=== PATIENT | female | born 1940 | race Caucasian/White ===

== ENCOUNTER → 2016-06-25 | Outpatient (CLI) | payer MEDICARE ==
--- NOTE | 2016-06-25 13:46 | WOMENS IMAGING REPORT ---
EXAM DESCRIPTION: 3D SCREENING MAMMO BILAT COMPLETED DATE/TIME: 06/25/2016 8:52 am REASON FOR STUDY: Z12.31, ROYUTINE SCREENING MAMMO (3D) Z12.31 ENCNTR SCREEN MAMMOGRAM FOR MALIGNAN T NEOPLASM OF OLAMIDE COMPARISON: 2008 to 2015 TECHNIQUE: Standard craniocaudal and mediolateral oblique views of each breast recorded using digita l acquisition and breast tomosynthesis. LIMITATIONS: None. FINDINGS: No masses, calcifications or architectural distortion. No areas of suspicion. Read with the assistance of CAD. .[facility] - R2 Cenova Version 1.3 .[facility] - R2 Cenova Version 1.3 .[facility] - R2 Cenova Version 2.4 .[facility] [place]2 Cenova Version 2.4 .[facility] - R2 Director Of Institutional Giving Version 9.2 BREAST DENSITY: b. There are scattered areas of fibroglandular density. BIRAD: 1 NEGATIVE RECOMMENDATION: ROUTINE SCREENING COMMENT: PATIENT NOTIFIED BY LETTER. The [employer] recommends an annual screening mammogram for women aged 40 years or over. Each patient will receive a reminder prior to the anniversary date of her mammogram. The [employer] ([employer]) has developed recommendations for screening MRI of the breast s in certain patient populations, to be used in conjunction with mammography. Breast MRI surveillanc e may be appropriate for women with more than 20% lifetime risk of developing breast cancer as deter mined by genetic testing, significant family history of the disease, or history of mantle radiation f or Hodgkins Disease. ACR Practice Guidelines 2008. DBT Technology DBT is a type of tomographic mammography. With conventional mammography, overlapping breast tissue ma y make lesions difficult to detect, even with good compression. DBT uses an x-ray tube that rotates a round the breast, taking images at different angles. These images are then combined to create thin sl ices of the breast that the radiologist can view as a 3D reconstruction. The ZOCKO unit can perform full-field digital mammograms (2D imaging); or DBT (3D imaging); or both, in a combination mode that quickly performs both the mammogram and the tomosynthesis scan while the breast is still compressed. PQRS 6045F: Fluoroscopic imaging is not utilized for breast tomosynthesis. TECHNICAL DOCUMENTATION: FINDING NUMBER: (1) ASSESSMENT: (1) JOB ID: [id number] [employer]- All Rights Reserved
== END ==
LOC: WI 08:18
PROVIDERS: ATTEND Family Medicine
DX: Z12.31 Encounter for screening mammogram for malignant neoplasm of breast (principal)
CPT/HCPCS: 77063; G0202; 77067

== ENCOUNTER 2016-08-23 21:30 | Inpatient (IN) | payer MEDICARE ==
[2016-08-23] MEDS ORDERED: FAMOTIDINE INJ/PF 20 MG/2 ML SDV IV ONE (22:10)
[2016-08-23] MEDS ORDERED: ONDANSETRON HCL INJ/PF 4 MG/2 ML SDV IV ONE (22:10)
--- NOTE | 2016-08-23 22:14 | ER Document Report ---
ED General - General Stated Complaint: CHEST PAIN Notes: Patient is 75-year-old female presents with complaint of pain in her epigastric and lower chest area. She says it started suddenly when she was sitting down and not doing anything exertional. No association shortness of breath. She did have some nausea. Emesis arrived they did give her aspirin and nitroglycerin. After the nitroglycerin she apparently dropped her pressure and syncopal episode and did vomit. No blood in her emesis. She says that her pain is actually improved now. She does have history of reflux but says this feels nothing like previous acid reflux pain. No history of heart disease. No weakness or numbness and her extremities. No headache. She had a chronic stress test in 2009. No cardiac workup since then. TRAVEL OUTSIDE OF THE [place] IN LAST 30 DAYS: No - Related Data Home Medications: Current Home Medications Acetaminophen [Tylenol] 1 tab PO PRN PRN 08/24/16 [History] Amitriptyline HCl [Elavil 10 Mg Tablet] 20 mg PO DAILY 08/24/16 [History] Chlorthalidone [Chlorthalidone 25 mg Tablet] 1 tab PO DAILY 08/24/16 [History] Citalopram Hydrobromide [Citalopram HBr] 20 mg PO DAILY 08/24/16 [History] Diphenhydramine HCl [Benadryl] 25 mg PO DAILY 08/24/16 [History] Enalapril Maleate 20 mg PO DAILY 08/24/16 [History] Iron 65 mg PO BID 08/24/16 [History] Levothyroxine Sodium 100 mcg PO DAILY 08/24/16 [History] Omeprazole 20 mg PO DAILY 08/24/16 [History] Red Yeast Rice 1,200 mg PO DAILY 08/24/16 [History] Ubidecarenone [Co Q-10] 100 mg PO DAILY 08/24/16 [History] Past Medical History - Social History Smoking Status: Never Smoker Frequency of alcohol use: None Drug Abuse: None Family History: Reviewed & Not Pertinent Review of Systems - Review of Systems Notes: My Normal Review Basic REVIEW OF SYSTEMS: CONSTITUTIONAL : Denies fever, chills, or sweats. Denies recent illness. EENT: Denies eye, ear, throat, or mouth pain or symptoms. Denies nasal or sinus congestion. CARDIOVASCULAR: Lower chest pain RESPIRATORY: Denies cough, cold, or chest congestion. Denies shortness of breath, difficulty breathing, or wheezing. GASTROINTESTINAL: Epigastric abdominal pain. Vomiting 1 Denies constipation. Last BM: GENITOURINARY: Denies difficulty urinating, painful urination, burning, frequency, or blood in urine.P: MUSCULOSKELETAL: Denies neck or back pain or joint pain or swelling. SKIN: Denies rash or skin lesions. NEUROLOGICAL: Denies altered mental status or loss of consciousness. Denies headache. Denies weakness or paralysis or loss of use of either side. Denies problems with gait or speech. Denies sensory or motor loss. ALL OTHER SYSTEMS REVIEWED AND NEGATIVE. Physical Exam - Vital signs Vitals: Temp 98.1 F 08/23/16 22:00 - Notes Notes: General Appearance: Well nourished, alert, cooperative, no acute distress, no obvious discomfort. Vitals: reviewed, See vital signs table. Head: no swelling or tenderness to the head Eyes: PERRL, EOMI, Conjuctiva clear Mouth: No decreasd moisture Lungs: No wheezing, No rales, No rhonci, No accessory muscle use, good air exchange bilaterally. Heart: Normal rate, Regular rythm, No murmur, no rub Abdomen: Normal BS, soft, No rigidity, no reproducible abdominal tenderness to palpation, No guarding, no rebound, no abdominal masses, no organomegaly Extremities: strength 5/5 in all extremities, good pulses in all extremities, no swelling or tenderness in the extremities, no edema. Skin: warm, dry, appropriate color, no rash Neuro: speech clear, oriented x 3, normal affect, responds appropriately to questions. Course - Vital Signs Vital signs: Temp Pulse Resp BP Pulse Ox 98.1 F 12 107/65 100 08/23/16 22:00 08/24/16 05:01 08/24/16 05:00 08/24/16 05:01 - Laboratory Result Diagrams: 08/23/16 22:25 08/23/16 22:25 Laboratory results interpreted by me: 08/23/16 08/23/16 22:25 22:25 WBC 12.8 H Hgb 10.5 L Hct 33.4 L MCV 75 L MCH 23.5 L MCHC 31.5 L RDW 24.0 H Seg Neutrophils % 79.2 H Lymphocytes % 10.2 L Absolute Neutrophils 10.2 H BUN 21 H Creatinine 1.34 H Est GFR ( Amer) 47 L Est GFR (Non-Af Amer) 39 L Glucose 112 H Direct Bilirubin 0.5 H AST 84 H Lipase 13636.7 H - EKG Interpretation by Me Additional EKG results interpreted by me: 08/23/16 22:10 EKG is reviewed and interpreted by me. EKG shows normal sinus rhythm with rate of [address] segment elevation or depression. No ischemic T wave inversions. AK interval, QRS duration, QTC intervals are within normal range. No old EKG available for comparison at this time. - Transfer of Care Notes: 08/24/16 03:13 Patient's has pancreatitis. Ultrasound was initially negative. I did give CT scan to look further evidence as to why patient's pancreatitis. CT scan showed is read as possible cholecystitis. I did call the surgeon cartoon animator, Dr. Amato, who recommends that we place patient on antibiotics and admit the patient medicine and have been consulted. He said they would not remove the gallbladder right away with the patient having acute pancreatitis. I did explain the plan to the patient and she is agreeable to it. 08/24/16 07:43 I did speak with Dr. Oliva, hospitalist, who agrees to admit the patient for further workup and treatment of her pancreatitis. Dictation of this chart was performed using voice recognition software; therefore, there may be some unintended grammatical errors.
[2016-08-23 22:40] LABS: ABSOLUTE BASOPHILS # (AUTO) 0.1 10^3/uL (0.0-0.2); ABSOLUTE EOSINOPHILS # (AUTO) 0.1 10^3/uL (0.0-0.6); ABSOLUTE LYMPHOCYTES (AUTO) 1.3 10^3/uL (0.5-4.7); ABSOLUTE MONOCYTES (AUTO) 1.2 10^3/uL (0.1-1.4); ABSOLUTE NEUT (AUTO) 10.2 10^3/uL (1.7-8.2); BASOPHILS % (AUTO) 0.6 % (0-2); EOSINOPHILS % (AUTO) 0.7 % (0-6); HEMATOCRIT 33.4 % (36.0-47.0); HEMOGLOBIN 10.5 g/dL (12.0-15.5); HGB HCT DIFFERENCE -1.9; LYMPHOCYTES % (AUTO) 10.2 % (13-45); MEAN CORPUSCULAR HEMOGLOBIN 23.5 pg (27.0-33.4); MEAN CORPUSCULAR HGB CONC 31.5 g/dL (32.0-36.0); MEAN CORPUSCULAR VOLUME 75 fl (80-97); MONOCYTES % (AUTO) 9.3 % (3-13); RED BLOOD COUNT 4.48 10^6/uL (3.72-5.28); SEGMENTED NEUTROPHILS % (AUTO) 79.2 % (42-78); WHITE BLOOD COUNT 12.8 10^3/uL (4.0-10.5)
[2016-08-23 22:51] LABS: ALANINE AMINOTRANSFERASE 44 U/L (9-52); ALBUMIN 4.3 g/dL (3.5-5.0); ALKALINE PHOSPHATASE 81 U/L (38-126); ANION GAP 14 (5-19); ASPARTATE AMINO TRANSFERASE 84 U/L (14-36); BILIRUBIN,DIRECT 0.5 mg/dL (0.0-0.4); BILIRUBIN,TOTAL 0.8 mg/dL (0.2-1.3); BLOOD UREA NITROGEN 21 mg/dL (7-20); CALCIUM 10.1 mg/dL (8.4-10.2); CARBON DIOXIDE 23 mmol/L (22-30); CHLORIDE 103 mmol/L (98-107); CREATINE KINASE 58 U/L (30-135); CREATININE RESULT 1.34 mg/dL (0.52-1.25); GLUCOSE 112 mg/dL (75-110); POTASSIUM 3.8 mmol/L (3.6-5.0); SODIUM 139.7 mmol/L (137-145); TOTAL PROTEIN 6.8 g/dL (6.3-8.2)
[2016-08-23] MEDS ORDERED: NORMAL SALINE 1000 ML 500 ML IV ONE (22:51)
[2016-08-23 23:02] LABS: CREATINE KINASE MB 0.63 ng/mL (<4.55)
[2016-08-23 23:03] LABS: TROPONIN I < 0.012 ng/mL
[2016-08-23 23:30] LABS: LIPASE 34385.7 U/L (23-300)
[2016-08-24] MEDS ORDERED: PIPERACILLIN/TAZOBACTAM 3.375 GM VIAL IV ONE (03:04)
[2016-08-24] MEDS ORDERED: NORMAL SALINE 1000 ML 1,000 ML IV ONE (04:35)
--- NOTE | 2016-08-24 07:18 | EKG REPORT ---
SEVERITY:- BORDERLINE ECG - SINUS RHYTHM NONSPECIFIC ST-T CHANGES ANTERIOR LEADS, MILD : Confirmed by: Chad Contreras MD 24-Aug-2016 07:18:22
[2016-08-24] MEDS ORDERED: ACETAMINOPHEN 650 MG SUPP.RECT PR PRN (10:02)
[2016-08-24] MEDS ORDERED: NORMAL SALINE 1000 ML 1,000 ML IV PRN (10:02)
[2016-08-24] MEDS ORDERED: ERTAPENEM SODIUM INJ 1 GM VIAL IV SCH (10:15)
--- NOTE | 2016-08-24 10:26 | PDOC H&P ---
History of Present Illness Admission Date/PCP: 08/24/2016 Patient complains of: Abdominal pain History of Present Illness: HI LOONEY is a 75 year old female with history of hypertension and hypothyroidism presents to the hospital because of abdominal pain that started yesterday afternoon. Patient reports that she has no energy and appetite for the past few days. There is no specific complaint or discomfort at that time. Yesterday afternoon she started to develop abdominal pain mainly on the epigastric area but no chest pain at all. On times the pain would radiate to the back. It was eventually associated with nausea and vomiting. The ambulance was called and patient reportedly developed hypotension and syncope , given intravenous fluid and transferred to the emergency room. Patient was given more IV boluses in the emergency room. Patient denies any chills or fever , no diarrhea or constipation, no dysuria urgency or frequency, no vaginal discharge or bleeding. Patient had a CT of the abdomen showing a distended gallbladder. Lipase was elevated to 34,000. The patient was then referred for admission. Past Medical History Cardiac Medical History: Reports: Hypertension Endocrine Medical History: Reports: Hypothyroidism, Other - Hot flashes Psychiatric Medical History: Reports: Depression, General Anxiety Disorder Hematology: Reports: Anemia - Iron deficient Past Surgical History Past Surgical History: Reports: Other - Breast surgery for a benign cyst Social History Information Source: Patient Smoking Status: Never Smoker Frequency of Alcohol Use: None Hx Recreational Drug Use: No Drugs: None Family History Family History: Hypertension, Malignancy - Uterine Parental Family History Reviewed: Yes Children Family History Reviewed: Yes Sibling(s) Family History Reviewed.: Yes Medication/Allergy Home Medications: Acetaminophen [Tylenol] 1 tab PO PRN PRN 08/24/16 Amitriptyline HCl [Elavil 10 Mg Tablet] 20 mg PO DAILY 08/24/16 Chlorthalidone [Chlorthalidone 25 mg Tablet] 1 tab PO DAILY 08/24/16 Citalopram Hydrobromide [Celexa 20 mg Tablet] 20 mg PO DAILY 08/24/16 Diphenhydramine HCl [Benadryl] 25 mg PO DAILY 08/24/16 Enalapril Maleate 20 mg PO DAILY 08/24/16 Iron 65 mg PO BID 08/24/16 Levothyroxine Sodium 100 mcg PO DAILY 08/24/16 Omeprazole 20 mg PO DAILY 08/24/16 Red Yeast Rice 1,200 mg PO DAILY 08/24/16 Ubidecarenone [Co Q-10] 100 mg PO DAILY 08/24/16 Review of Systems Constitutional: PRESENT: weakness - Generally. ABSENT: chills, fever(s), headache(s), night sweats, weight gain, weight loss Eyes: ABSENT: visual disturbances Ears: ABSENT: hearing changes Nose, Mouth, and Throat: ABSENT: mouth pain, sore throat Cardiovascular: PRESENT: dyspnea on exertion - Chronic and intermittent. ABSENT : chest pain, edema, orthropnea, palpitations Respiratory: ABSENT: cough, dyspnea, hemoptysis, sputum Gastrointestinal: PRESENT: abdominal pain, nausea, vomiting. ABSENT: constipation, diarrhea, dysphagia, hematemesis, hematochezia, melena Genitourinary: ABSENT: difficulty urinating, dysuria, hematuria Musculoskeletal: ABSENT: joint swelling Integumentary: ABSENT: pruritus, rash, wounds Neurological: PRESENT: syncope. ABSENT: abnormal gait, abnormal speech, confusion, dizziness, focal weakness Psychiatric: ABSENT: anxiety, depression, homidical ideation, suicidal ideation Endocrine: ABSENT: cold intolerance, heat intolerance, polydipsia, polyuria Hematologic/Lymphatic: ABSENT: easy bleeding, easy bruising Physical Exam Vital Signs: Temp Pulse Resp BP Pulse Ox 98.1 F 12 107/65 100 08/23/16 22:00 08/24/16 05:01 08/24/16 05:00 08/24/16 05:01 General appearance: PRESENT: no acute distress, well-developed, well-nourished Head exam: PRESENT: atraumatic, normocephalic Eye exam: PRESENT: conjunctiva pale, EOMI, PERRLA. ABSENT: scleral icterus Ear exam: PRESENT: normal external ear exam. ABSENT: drainage Mouth exam: PRESENT: moist, neck supple, tongue midline Neck exam: ABSENT: carotid bruit, JVD, lymphadenopathy, thyromegaly Respiratory exam: PRESENT: clear to auscultation kelly, unlabored. ABSENT: rales , rhonchi, wheezes Cardiovascular exam: PRESENT: RRR, +S1, +S2. ABSENT: diastolic murmur, gallop, rubs, systolic murmur Pulses: PRESENT: normal dorsalis pedis pul Vascular exam: PRESENT: normal capillary refill GI/Abdominal exam: PRESENT: hypoactive bowel sounds, soft, tenderness - Epigastric area. ABSENT: distended, guarding, mass, organolmegaly, rebound Rectal exam: PRESENT: deferred Extremities exam: PRESENT: full ROM. ABSENT: calf tenderness, clubbing, pedal edema Neurological exam: PRESENT: alert, awake, oriented to person, oriented to place , oriented to time, oriented to situation Psychiatric exam: PRESENT: appropriate affect, normal mood. ABSENT: homicidal ideation, suicidal ideation Skin exam: PRESENT: dry, intact, warm. ABSENT: cyanosis, rash Results Laboratory Results: 08/23/16 22:25 08/23/16 22:25 08/23/16 08/23/16 22:25 22:25 WBC 12.8 H RBC 4.48 Hgb 10.5 L Hct 33.4 L MCV 75 L MCH 23.5 L MCHC 31.5 L RDW 24.0 H Plt Count 320 Seg Neutrophils % 79.2 H Lymphocytes % 10.2 L Monocytes % 9.3 Eosinophils % 0.7 Basophils % 0.6 Absolute Neutrophils 10.2 H Absolute Lymphocytes 1.3 Absolute Monocytes 1.2 Absolute Eosinophils 0.1 Absolute Basophils 0.1 Sodium 139.7 Potassium 3.8 Chloride 103 Carbon Dioxide 23 Anion Gap 14 BUN 21 H Creatinine 1.34 H Est GFR ( Amer) 47 L Est GFR (Non-Af Amer) 39 L Glucose 112 H Calcium 10.1 Total Bilirubin 0.8 AST 84 H ALT 44 Alkaline Phosphatase 81 Total Protein 6.8 Albumin 4.3 Lipase 68642.7 H 08/23/16 08/23/16 22:25 22:25 Creatine Kinase 58 CK-MB (CK-2) 0.63 Troponin I < 0.012 Impressions: Chest X-Ray 08/23/16 22:10 IMPRESSION: NO ACUTE RADIOGRAPHIC FINDING IN THE CHEST. Abdomen Ultrasound 08/23/16 23:45 IMPRESSION: No cholelithiasis or biliary ductal dilation. Fatty infiltration of the liver. Nonvisualized pancreas. Abdomen/Pelvis CT 08/24/16 01:14 IMPRESSION: No peripancreatic inflammatory changes or fluid collections. Distended gallbladder with pericholecystic fluid, please correlate clinically for acute cholecystitis. Hepatobiliary scan can be obtained as clinically warranted. Mildly dilated common bile duct to 9 mm. Bilateral renal cortical scarring, may represent sequela of prior infections. Small hiatal hernia. Patchy ground-glass opacities in the right middle and lower lobes, may represent multifocal pneumonia. Followup CT after treatment recommended to ensure complete resolution and exclude a different etiology. 6 mm pleural-based nodule in the left lower lobe. Followup as per patient's risk factors. Assessment & Plan - Diagnosis (1) Acute pancreatitis Qualifiers: Pancreatitis type: unspecified pancreatitis type Acute pancreatitis complication: unspecified Qualified Code(s): K85.90 - Acute pancreatitis without necrosis or infection, unspecified Is this a current diagnosis for this admission?: Yes (2) Hydrops of gallbladder Is this a current diagnosis for this admission?: Yes (3) Iron deficiency anemia Qualifiers: Iron deficiency anemia type: unspecified iron deficiency Qualified Code(s): D50.9 - Iron deficiency anemia, unspecified Is this a current diagnosis for this admission?: Yes (4) Fatty liver Is this a current diagnosis for this admission?: Yes (5) Chronic kidney disease, stage III (moderate) Is this a current diagnosis for this admission?: Yes (6) Hypothyroidism (acquired) Is this a current diagnosis for this admission?: Yes (7) Essential hypertension Is this a current diagnosis for this admission?: Yes (8) Anxiety and depression Is this a current diagnosis for this admission?: Yes - Time Time Spent: 50 to 70 Minutes - Inpatient Certification Based on my medical assessment, after consideration of the patient's comorbidities, presenting symptoms, or acuity I expect that the services needed warrant INPATIENT care.: Yes I certify that my determination is in accordance with my understanding of Medicare's requirements for reasonable and necessary INPATIENT services [42 CFR 412.3e].: Yes Medical Necessity: Significant Comorbidiites Make Outpatient Treatment Too Risky , Need Close Monitoring Due to Risk of Patient Decompensation, Need For IV Fluids, Need for Pain Control 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 I will keep her nothing by mouth, except medications. We will monitor WBC, electrolytes, amylase and lipase. We will consult surgery for further evaluation. The patient will be hydrated with normal saline and as needed intravenous narcotic for pain control. DVT prophylaxis with Lovenox will be placed. We will begin antibiotics intravenously. Further testing depends on initial evaluation and per specialty recommendation as outlined above.
[2016-08-24 12:02] LABS: THYROID STIMULATING HORMONE < 0.02 uIU/mL (0.47-4.68)
[2016-08-24 13:13] LABS: APPEARANCE,URINE CLEAR; BILIRUBIN,URINE NEGATIVE (NEGATIVE); GLUCOSE, URINE NEGATIVE (NEGATIVE); KETONES,URINE NEGATIVE (NEGATIVE); LEUKOCYTE ESTERASE,URINE TRACE (NEGATIVE); NITRITE,URINE NEGATIVE (NEGATIVE); PROTEIN,URINE NEGATIVE (NEGATIVE); URINE SPECIFIC GRAVITY 1.027; UROBILINOGEN,URINE NEGATIVE mg/dL (<2.0)
[2016-08-24] MEDS: ERTAPENEM SODIUM 1 GM in NORMAL SALINE 50 ML IV SCH (14:51)
--- NOTE | 2016-08-24 18:18 | CONSULTATION REPORT E ---
Consultation Report NAME: HI LOONEY : 1940 AGE: 75Y DATE: 536 A TO: NAGELITA SALCEDO M.D. FROM: Requesting Physician REASON FOR ADMISSION: Hyperlipasemia with associated abdominal pain, nausea and vomiting. HISTORY OF PRESENT ILLNESS: This 75-year-old female was in her usual state of health until the past few days, when she developed anorexia and lack of energy. This went on for a few days, with no specific complaint or discomfort at that time. However, 24 hours ago, on the afternoon of August 23, she developed epigastric pain that felt like a belt across her upper abdomen that did not radiate. The patient then developed nausea and vomiting x4, 3 times in the ambulance and 1 time in the emergency room, associated with nausea. While in the ambulance, the patient developed hypotension and syncope and was given intravenous fluid for resuscitation, and was transferred to the emergency room. Upon arrival to the ER, she was given additional IV boluses, to which she responded well with normalization of her blood pressure. The patient was given fluid boluses and then underwent laboratory evaluation which revealed a lipase that was over 34,000. The patient then also had a CT of the abdomen which showed only a small amount of pericholecystic fluid and a distended gallbladder. Otherwise, there was no evidence of pancreatitis on the CT scan of the abdomen. The patient was admitted to the hospital and surgical consultation has been requested. PAST MEDICAL HISTORY: The patient has a history of hypertension, hypothyroidism, depression and general anxiety disorder, and history of iron deficient anemia. PAST SURGICAL HISTORY: The patient had breast surgery for a benign cyst. The patient has history of deep vein thrombosis in the past as well. SOCIAL HISTORY: The patient does not smoke. Does not use alcohol. Denies use of any recreational drugs. HOME MEDICATIONS: Acetaminophen, Elavil, chlorthalidone, Celexa, Benadryl, Enalapril, iron, levothyroxine, omeprazole, red yeast rice, and Co-Q10. REVIEW OF SYSTEMS: The patient denies any symptoms referable to the constitutional symptoms other than some weakness and anorexia recently. The patient denies any symptoms referable to the eyes, ears, nose, or throat. Cardiovascular system: The patient does have dyspnea on exertion, chronic and intermittent, but otherwise has no other symptoms referable to the cardiovascular system. The patient denies any symptoms referable to the respiratory, genitourinary, musculoskeletal, integumentary systems. Gastrointestinal system: As in history of present illness. Neurological: The patient has syncope. The patient has no symptoms referable to the psychiatric, endocrine, or hematologic symptoms. PHYSICAL EXAMINATION: VITAL SIGNS: On admission, temperature 98.1, respirations 12, blood pressure 107/65, pulse 100. As of this date, August 24, temperature 98.5, pulse 78, blood pressure 147/78, respirations 18, saturation 98%. HEENT: No conjunctival pallor or scleral icterus. Mucous membranes are moist and pink. NECK: Supple without nodes, masses, thyromegaly, JVD or bruits. Trachea is midline. CHEST WALL: Good excursions. Lungs are clear anteriorly with good entry. CARDIOVASCULAR: S1 and S2 are audible without murmurs or gallops. ABDOMEN: Soft with minimal epigastric or upper abdominal tenderness. There is no guarding, no rebound. Bowel sounds are slightly depressed, but present. EXTREMITIES: Full range of motion. No calf tenderness, clubbing, or edema. LABORATORY DATA: Hemoglobin 10.5, hematocrit 33.4, white count 12.8. The patient's electrolytes are within normal limits. Creatinine mildly elevated at 1.34. The patient's lipase is 34,385.7. The patient's ultrasound shows no evidence of any stones or sludge. No gallbladder wall thickening. No pericholecystic fluid. Only the patient's CT scan shows distended gallbladder and a small amount of pericholecystic fluid. IMPRESSION: Hyperlipasemia of unknown etiology, as the patient's pancreas appears normal and gallbladder is only mildly distended with small amount of pericholecystic fluid. We can presume that her hyperlipasemia is of biliary origin, although there are minimal findings on CT scan and ultrasound. PLAN: Patient will be kept NPO. Will be given intravenous fluids, pain medication, serial lipase levels will be drawn, and once this lipase has normalized, then the patient will need a HIDA scan with CCK stimulation. DICTATING PHYSICIAN: ANGELITA SALCEDO M.D. [id number] PHY#: [id number] ID: [id number] JOB#: [id number] ACCT: [id number] cc:ANGELITA SALCEDO M.D. >
[2016-08-24] MEDS: ONDANSETRON HCL INJ/PF 4 MG/2 ML SDV IV PRN (20:44)
[2016-08-24] MEDS: MORPHINE SULFATE 10 MG/ML INJ IV PRN (20:44)
[2016-08-24] MEDS: FAMOTIDINE 20 MG TABLET PO SCH (22:58)
[2016-08-25 04:50] LABS: ABSOLUTE BASOPHILS # (AUTO) 0.1 10^3/uL (0.0-0.2); ABSOLUTE EOSINOPHILS # (AUTO) 0.2 10^3/uL (0.0-0.6); ABSOLUTE LYMPHOCYTES (AUTO) 1.2 10^3/uL (0.5-4.7); ABSOLUTE NEUT (AUTO) 4.7 10^3/uL (1.7-8.2); BASOPHILS % (AUTO) 1.2 % (0-2); EOSINOPHILS % (AUTO) 3.1 % (0-6); HEMATOCRIT 29.6 % (36.0-47.0); HEMOGLOBIN 9.5 g/dL (12.0-15.5); HGB HCT DIFFERENCE -1.1; LYMPHOCYTES % (AUTO) 16.3 % (13-45); MEAN CORPUSCULAR HEMOGLOBIN 24.1 pg (27.0-33.4); MEAN CORPUSCULAR VOLUME 75 fl (80-97); MONOCYTES % (AUTO) 13.7 % (3-13); RED BLOOD COUNT 3.94 10^6/uL (3.72-5.28); RED CELL DISTRIBUTION WIDTH 23.9 % (11.5-14.0); SEGMENTED NEUTROPHILS % (AUTO) 65.7 % (42-78); WHITE BLOOD COUNT 7.2 10^3/uL (4.0-10.5)
[2016-08-25 05:11] LABS: AMYLASE 461 U/L (30-110); ANION GAP 10 (5-19); BLOOD UREA NITROGEN 14 mg/dL (7-20); CALCIUM 9.5 mg/dL (8.4-10.2); CARBON DIOXIDE 25 mmol/L (22-30); CHLORIDE 105 mmol/L (98-107); CREATININE RESULT 1.18 mg/dL (0.52-1.25); GLUCOSE 81 mg/dL (75-110); LIPASE 1159.4 U/L (23-300); MAGNESIUM 1.9 mg/dL (1.6-2.3); PHOSPHORUS 3.8 mg/dL (2.5-4.5); POTASSIUM 4.2 mmol/L (3.6-5.0); SODIUM 139.8 mmol/L (137-145)
[2016-08-25] MEDS: MORPHINE SULFATE 10 MG/ML INJ IV PRN ×3 (05:56→21:35)
[2016-08-25] MEDS: ONDANSETRON HCL INJ/PF 4 MG/2 ML SDV IV PRN ×2 (05:56→21:35)
[2016-08-25] MEDS: ENOXAPARIN SODIUM INJ 40 MG/0.4 ML DISP.SYRIN SUBCUT SCH (08:28)
--- NOTE | 2016-08-25 08:58 | PDOC PROGRESS REPORT ---
Subjective Progress Note for:: 08/25/16 Subjective:: Patient is feeling much better. No nausea or vomiting at this time. No diarrhea. Abdominal pain is less. No chills or fever. No shortness of breath , PND or orthopnea. No coughing. Physical Exam Vital Signs: Temp Pulse Resp BP Pulse Ox 98.2 F 74 18 127/67 H 99 08/25/16 08:00 08/25/16 08:00 08/25/16 08:00 08/25/16 08:00 08/25/16 08:00 Intake & Output 08/24/16 08/25/16 08/26/16 06:59 06:59 06:59 Intake Total 2144 Output Total 500 Balance 1644 Weight 64.9 kg General appearance: PRESENT: no acute distress, cooperative Head exam: PRESENT: normocephalic Eye exam: PRESENT: EOMI Mouth exam: PRESENT: moist, neck supple Neck exam: ABSENT: JVD Respiratory exam: PRESENT: clear to auscultation kelly. ABSENT: rhonchi, wheezes Cardiovascular exam: PRESENT: RRR. ABSENT: gallop GI/Abdominal exam: PRESENT: hypoactive bowel sounds, soft, tenderness - Minimal in the epigastric area. ABSENT: distended Extremities exam: ABSENT: pedal edema Neurological exam: PRESENT: alert, awake, oriented to situation Skin exam: PRESENT: dry, warm. ABSENT: cyanosis Results Laboratory Results: 08/25/16 04:38 08/25/16 04:38 08/24/16 08/24/16 08/25/16 12:50 20:00 04:38 WBC 7.2 RBC 3.94 Hgb 9.5 L Hct 29.6 L MCV 75 L MCH 24.1 L MCHC 32.0 RDW 23.9 H Plt Count 255 Seg Neutrophils % 65.7 Lymphocytes % 16.3 Monocytes % 13.7 H Eosinophils % 3.1 Basophils % 1.2 Absolute Neutrophils 4.7 Absolute Lymphocytes 1.2 Absolute Monocytes 1.0 Absolute Eosinophils 0.2 Absolute Basophils 0.1 Sodium Potassium Chloride Carbon Dioxide Anion Gap BUN Creatinine Est GFR ( Amer) Est GFR (Non-Af Amer) Glucose Calcium Phosphorus Magnesium Amylase Lipase 2859.8 H Urine Color STRAW Urine Appearance CLEAR Urine pH 7.0 Ur Specific [place] 1.027 Urine Protein NEGATIVE Urine Glucose (UA) NEGATIVE Urine Ketones NEGATIVE Urine Blood NEGATIVE Urine Nitrite NEGATIVE Ur Leukocyte Esterase TRACE H Urine WBC (Auto) 2 Urine RBC (Auto) 2 08/25/16 04:38 WBC RBC Hgb Hct MCV MCH MCHC RDW Plt Count Seg Neutrophils % Lymphocytes % Monocytes % Eosinophils % Basophils % Absolute Neutrophils Absolute Lymphocytes Absolute Monocytes Absolute Eosinophils Absolute Basophils Sodium 139.8 Potassium 4.2 Chloride 105 Carbon Dioxide 25 Anion Gap 10 BUN 14 Creatinine 1.18 Est GFR ( Amer) 54 L Est GFR (Non-Af Amer) 45 L Glucose 81 Calcium 9.5 Phosphorus 3.8 Magnesium 1.9 Amylase 461 H Lipase 1159.4 H Urine Color Urine Appearance Urine pH Ur Specific [place] Urine Protein Urine Glucose (UA) Urine Ketones Urine Blood Urine Nitrite Ur Leukocyte Esterase Urine WBC (Auto) Urine RBC (Auto) Impressions: Chest X-Ray 08/23/16 22:10 IMPRESSION: NO ACUTE RADIOGRAPHIC FINDING IN THE CHEST. Abdomen Ultrasound 08/23/16 23:45 IMPRESSION: No cholelithiasis or biliary ductal dilation. Fatty infiltration of the liver. Nonvisualized pancreas. Abdomen/Pelvis CT 08/24/16 01:14 IMPRESSION: No peripancreatic inflammatory changes or fluid collections. Distended gallbladder with pericholecystic fluid, please correlate clinically for acute cholecystitis. Hepatobiliary scan can be obtained as clinically warranted. Mildly dilated common bile duct to 9 mm. Bilateral renal cortical scarring, may represent sequela of prior infections. Small hiatal hernia. Patchy ground-glass opacities in the right middle and lower lobes, may represent multifocal pneumonia. Followup CT after treatment recommended to ensure complete resolution and exclude a different etiology. 6 mm pleural-based nodule in the left lower lobe. Followup as per patient's risk factors. Assessment & Plan - Diagnosis (1) Acute pancreatitis Qualifiers: Pancreatitis type: unspecified pancreatitis type Acute pancreatitis complication: unspecified Qualified Code(s): K85.90 - Acute pancreatitis without necrosis or infection, unspecified Is this a current diagnosis for this admission?: Yes (2) Hydrops of gallbladder Is this a current diagnosis for this admission?: Yes (3) Iron deficiency anemia Qualifiers: Iron deficiency anemia type: unspecified iron deficiency Qualified Code(s): D50.9 - Iron deficiency anemia, unspecified Is this a current diagnosis for this admission?: Yes (4) Fatty liver Is this a current diagnosis for this admission?: Yes (5) Chronic kidney disease, stage III (moderate) Is this a current diagnosis for this admission?: Yes (6) Hypothyroidism (acquired) Is this a current diagnosis for this admission?: Yes (7) Essential hypertension Is this a current diagnosis for this admission?: Yes (8) Anxiety and depression Is this a current diagnosis for this admission?: Yes - Time Time Spent with patient: 25-34 minutes - Plan Summary Plan Summary: Appreciate surgical service input. Keep the patient nothing by mouth for now, continue IV fluids and antibiotics. Check amylase and lipase, electrolytes in the morning as well as WBC. Continue supportive care. We will obtain a HIDA scan once lipase normalized.
[2016-08-25] MEDS: LEVOTHYROXINE SODIUM 0.1 MG TABLET PO SCH (09:33)
[2016-08-25] MEDS: FAMOTIDINE 20 MG TABLET PO SCH ×2 (09:34→21:35)
[2016-08-25] MEDS ORDERED: LEVOFLOXACIN 750 MG/D5W RTU 750 MG/150 ML RTUPB IV ONE (10:00)
[2016-08-25] MEDS ORDERED: BUPIVACAINE HCL 0.25 % INJ/PF (2.5 MG/1 ML) 30 ML VIAL ONE (11:42)
--- NOTE | 2016-08-25 11:49 | PDOC PROGRESS REPORT ---
Subjective Progress Note for:: 08/25/16 Subjective:: Pain better Physical Exam Vital Signs: Temp Pulse Resp BP Pulse Ox 98.2 F 74 18 127/67 H 99 08/25/16 09:42 08/25/16 09:42 08/25/16 09:42 08/25/16 09:42 08/25/16 09:42 Intake & Output 08/24/16 08/25/16 08/26/16 06:59 06:59 06:59 Intake Total 2144 Output Total 500 Balance 1644 Weight 64.9 kg General appearance: PRESENT: no acute distress, well-developed, well-nourished Head exam: PRESENT: atraumatic, normocephalic Eye exam: PRESENT: conjunctiva pink, EOMI, PERRLA. ABSENT: scleral icterus Ear exam: PRESENT: normal external ear exam Mouth exam: PRESENT: moist, tongue midline Neck exam: ABSENT: carotid bruit, JVD, lymphadenopathy, thyromegaly Respiratory exam: PRESENT: clear to auscultation kelly. ABSENT: rales, rhonchi, wheezes Cardiovascular exam: PRESENT: RRR. ABSENT: diastolic murmur, rubs, systolic murmur Pulses: PRESENT: normal dorsalis pedis pul Vascular exam: PRESENT: normal capillary refill GI/Abdominal exam: PRESENT: normal bowel sounds, soft, other - Tender right upper abdomen. ABSENT: distended, guarding, mass, organolmegaly, rebound, tenderness Rectal exam: PRESENT: deferred Extremities exam: PRESENT: full ROM. ABSENT: calf tenderness, clubbing, pedal edema Neurological exam: PRESENT: alert, awake, oriented to person, oriented to place , oriented to time, oriented to situation, CN II-XII grossly intact. ABSENT: motor sensory deficit Psychiatric exam: PRESENT: appropriate affect, normal mood. ABSENT: homicidal ideation, suicidal ideation Skin exam: PRESENT: dry, intact, warm. ABSENT: cyanosis, rash Results Laboratory Results: 08/25/16 04:38 08/25/16 04:38 08/24/16 08/24/16 08/25/16 12:50 20:00 04:38 WBC 7.2 RBC 3.94 Hgb 9.5 L Hct 29.6 L MCV 75 L MCH 24.1 L MCHC 32.0 RDW 23.9 H Plt Count 255 Seg Neutrophils % 65.7 Lymphocytes % 16.3 Monocytes % 13.7 H Eosinophils % 3.1 Basophils % 1.2 Absolute Neutrophils 4.7 Absolute Lymphocytes 1.2 Absolute Monocytes 1.0 Absolute Eosinophils 0.2 Absolute Basophils 0.1 Sodium Potassium Chloride Carbon Dioxide Anion Gap BUN Creatinine Est GFR ( Amer) Est GFR (Non-Af Amer) Glucose Calcium Phosphorus Magnesium Amylase Lipase 2859.8 H Urine Color STRAW Urine Appearance CLEAR Urine pH 7.0 Ur Specific [place] 1.027 Urine Protein NEGATIVE Urine Glucose (UA) NEGATIVE Urine Ketones NEGATIVE Urine Blood NEGATIVE Urine Nitrite NEGATIVE Ur Leukocyte Esterase TRACE H Urine WBC (Auto) 2 Urine RBC (Auto) 2 08/25/16 04:38 WBC RBC Hgb Hct MCV MCH MCHC RDW Plt Count Seg Neutrophils % Lymphocytes % Monocytes % Eosinophils % Basophils % Absolute Neutrophils Absolute Lymphocytes Absolute Monocytes Absolute Eosinophils Absolute Basophils Sodium 139.8 Potassium 4.2 Chloride 105 Carbon Dioxide 25 Anion Gap 10 BUN 14 Creatinine 1.18 Est GFR ( Amer) 54 L Est GFR (Non-Af Amer) 45 L Glucose 81 Calcium 9.5 Phosphorus 3.8 Magnesium 1.9 Amylase 461 H Lipase 1159.4 H Urine Color Urine Appearance Urine pH Ur Specific [place] Urine Protein Urine Glucose (UA) Urine Ketones Urine Blood Urine Nitrite Ur Leukocyte Esterase Urine WBC (Auto) Urine RBC (Auto) Impressions: Chest X-Ray 08/23/16 22:10 IMPRESSION: NO ACUTE RADIOGRAPHIC FINDING IN THE CHEST. Abdomen Ultrasound 08/23/16 23:45 IMPRESSION: No cholelithiasis or biliary ductal dilation. Fatty infiltration of the liver. Nonvisualized pancreas. Abdomen/Pelvis CT 08/24/16 01:14 IMPRESSION: No peripancreatic inflammatory changes or fluid collections. Distended gallbladder with pericholecystic fluid, please correlate clinically for acute cholecystitis. Hepatobiliary scan can be obtained as clinically warranted. Mildly dilated common bile duct to 9 mm. Bilateral renal cortical scarring, may represent sequela of prior infections. Small hiatal hernia. Patchy ground-glass opacities in the right middle and lower lobes, may represent multifocal pneumonia. Followup CT after treatment recommended to ensure complete resolution and exclude a different etiology. 6 mm pleural-based nodule in the left lower lobe. Followup as per patient's risk factors. Assessment & Plan - Plan Summary Plan Summary: Gall stone pancreatitis pancraetitis resolving For lap christiano today
[2016-08-25] MEDS ORDERED: MIDAZOLAM 2 MG/2 ML INJ ONE (13:25)
[2016-08-25] MEDS ORDERED: HYDROMORPHONE HCL INJ/PF 2 MG/ML AMPULE ONE (13:25)
[2016-08-25] MEDS ORDERED: FENTANYL CITRATE INJ/PF 100 MCG/2 ML AMPUL ONE (13:25)
[2016-08-25] MEDS ORDERED: EPHEDRINE SULFATE INJ 50 MG/1 ML AMPULE ONE (13:25)
[2016-08-25] MEDS ORDERED: PROPOFOL INJ 200 MG/20 ML VIAL IV ONE (13:26)
[2016-08-25] MEDS ORDERED: ACETAMINOPHEN 100 ML IV ONE (13:26)
[2016-08-25] MEDS ORDERED: FENTANYL CITRATE INJ/PF 100 MCG/2 ML AMPUL IV PRN ×3 (14:03)
[2016-08-25] MEDS ORDERED: OXYCODONE-ACETAMINOPHEN 5-325 MG TABLET PO PRN ×2 (14:03)
[2016-08-25] MEDS ORDERED: DIPHENHYDRAMINE HCL 50 MG/ML VIAL IV PRN (14:03)
[2016-08-25] MEDS ORDERED: PROMETHAZINE HCL INJ 25 MG/1 ML VIAL IV PRN ×2 (14:03)
[2016-08-25] MEDS ORDERED: MEPERIDINE HCL/PF INJ 25 MG/1 ML DISP.SYRIN IV PRN (14:03)
[2016-08-25] MEDS ORDERED: MORPHINE SULFATE 10 MG/ML INJ IV PRN (14:03)
[2016-08-25] MEDS ORDERED: ONDANSETRON HCL INJ/PF 4 MG/2 ML SDV IV PRN ×2 (14:03→15:32)
[2016-08-25] MEDS ORDERED: DEXAMETHASONE SOD PHOSPHATE INJ 4 MG/1 ML VIAL ONE (15:16)
[2016-08-25] MEDS ORDERED: NEOSTIGMINE METHYLSULFATE 10 MG/10 ML VIAL ONE (15:16)
[2016-08-25] MEDS ORDERED: METOCLOPRAMIDE HCL INJ/PF 10 MG/2 ML SDV ONE (15:16)
[2016-08-25] MEDS ORDERED: GLYCOPYRROLATE INJ 0.4 MG/2 ML VIAL ONE (15:16)
[2016-08-25] MEDS ORDERED: ROCURONIUM BROMIDE INJ 50 MG/5 ML VIAL IV ONE (15:16)
[2016-08-25] MEDS ORDERED: ONDANSETRON HCL INJ/PF 4 MG/2 ML SDV ONE (15:16)
[2016-08-25] MEDS ORDERED: KETOROLAC TROMETHAMINE 60 MG/2 ML SDV ONE (15:16)
[2016-08-25] MEDS ORDERED: LIDOCAINE 2% INJ-PF (20 MG/ML) 10 ML AMPUL ONE (15:16)
[2016-08-25] MEDS ORDERED: SUCCINYLCHOLINE CHLORIDE INJ 200 MG/10 ML VIAL ONE (15:16)
[2016-08-25] MEDS ORDERED: HYDROMORPHONE HCL INJ/PF 2 MG/ML AMPULE IV PRN (15:31)
[2016-08-25] MEDS: ERTAPENEM SODIUM 1 GM in NORMAL SALINE 50 ML IV SCH (16:13)
--- NOTE | 2016-08-25 18:23 | OPERATIVE REPORT E ---
Operative Report NAME: HI LOONEY : 1940 AGE: 75Y DATE OF SURGERY: 08/25/2016 ROOM: 536 PREOPERATIVE DIAGNOSIS: A 75-year-old female patient with a preop diagnosis of cholecystitis/pancreatitis which is resolving. POSTOPERATIVE DIAGNOSIS: Cholecystitis/pancreatitis which is resolving. OPERATION: Laparoscopic cholecystectomy. SURGEON: KIRK BATRES M.D. ANESTHESIA: General. ASSISTANTS: Guille and Tonja. ESTIMATED BLOOD LOSS: Less than 15 mL. TISSUE REMOVED OR ALTERED: Specimens: Gallbladder with the contents. HISTORY AND INDICATION: As described. PROCEDURE DESCRIPTION: The patient was placed in the supine position, SCD boots. Abdomen was cleaned and draped as a sterile field. Supraumbilically, a 12 mm trocar was inserted in the fascia opening and then under direct laparoscopic visualization a 5 mm trocar inserted in the epigastrium and another 5 mm trocar inserted into right upper quadrant. Findings: Gallbladder acutely inflamed, thick walled and distended with obstruction of the gallbladder neck area. Gallbladder was initially decompressed by aspirating the contents and the gallbladder neck was dissected out clearly. After that, cystic artery was divided between the clips and harmonic scalpel and the cystic duct was clearly dissected very close to the gallbladder neck. After the cystic duct was carefully securely ligated with a #0 looped PDS. Also clips were applied. After that it was divided close to the gallbladder neck. The gallbladder and the contents were removed into an EndoCatch bag. Abdominal cavity and subhepatic area copiously suctioned out, completely thoroughly hemostatic. Since there was a large amount of inflammatory phlegmon around the gallbladder there was some oozing, and also extensive inflammation, and for that reason a TOBIAS drain was placed in the subhepatic area after complete hemostasis was secured. This was brought out through a 5 mm . After suctioning out, the trocars placed and closed by using a 0-Vicryl for the fascia, 3-0 and 4-0 Monocryl for the skin. The patient did not encounter any problems. She was taken to recovery room in stable condition. DICTATING PHYSICIAN: KIRK BATRES M.D. [id number] PHY#: [id number] ID: [id number] JOB#: [id number] ACCT: [id number] cc:KIRK BATRES M.D. > [place]
[2016-08-25] MEDS: NORMAL SALINE 1000 ML 1,000 ML IV PRN (18:26)
[2016-08-26] MEDS: NORMAL SALINE 1000 ML 1,000 ML IV PRN ×2 (02:55→23:18)
[2016-08-26] MEDS: MORPHINE SULFATE 10 MG/ML INJ IV PRN ×2 (03:04→07:55)
[2016-08-26] MEDS: ONDANSETRON HCL INJ/PF 4 MG/2 ML SDV IV PRN (03:04)
[2016-08-26 05:36] LABS: HEMATOCRIT 26.3 % (36.0-47.0); HEMOGLOBIN 8.3 g/dL (12.0-15.5); HGB HCT DIFFERENCE -1.4; MEAN CORPUSCULAR HEMOGLOBIN 24.2 pg (27.0-33.4); MEAN CORPUSCULAR HGB CONC 31.7 g/dL (32.0-36.0); MEAN CORPUSCULAR VOLUME 77 fl (80-97); RED BLOOD COUNT 3.44 10^6/uL (3.72-5.28); RED CELL DISTRIBUTION WIDTH 24.3 % (11.5-14.0); WHITE BLOOD COUNT 8.2 10^3/uL (4.0-10.5)
[2016-08-26 05:44] LABS: AMYLASE 128 U/L (30-110); ANION GAP 13 (5-19); BLOOD UREA NITROGEN 17 mg/dL (7-20); CALCIUM 8.8 mg/dL (8.4-10.2); CARBON DIOXIDE 18 mmol/L (22-30); CHLORIDE 106 mmol/L (98-107); CREATININE RESULT 1.21 mg/dL (0.52-1.25); GLUCOSE 142 mg/dL (75-110); LIPASE 299.1 U/L (23-300); POTASSIUM 4.5 mmol/L (3.6-5.0); SODIUM 136.7 mmol/L (137-145)
[2016-08-26] MEDS: ENOXAPARIN SODIUM INJ 40 MG/0.4 ML DISP.SYRIN SUBCUT SCH (07:55)
--- NOTE | 2016-08-26 09:40 | PDOC PROGRESS REPORT ---
Subjective Progress Note for:: 08/26/16 Subjective:: Patient had laparoscopic cholecystectomy. Currently tolerating fluids. Pain still present on the surgical site. No reported temperature spikes, nausea or vomiting, diarrhea. Denies any chest pain or shortness of breath. Physical Exam Vital Signs: Temp Pulse Resp BP Pulse Ox 97.9 F 105 H 18 174/97 H 99 08/26/16 08:26 08/26/16 08:26 08/26/16 08:26 08/26/16 08:26 08/26/16 08:26 Intake & Output 08/25/16 08/26/16 08/27/16 06:59 06:59 06:59 Intake Total 2144 2680 Output Total 500 2415 Balance 1644 265 Weight 64.9 kg 65.3 kg General appearance: PRESENT: no acute distress, cooperative Head exam: PRESENT: normocephalic Eye exam: PRESENT: EOMI Mouth exam: PRESENT: moist, neck supple Neck exam: ABSENT: JVD Respiratory exam: PRESENT: clear to auscultation kelly. ABSENT: rhonchi, wheezes Cardiovascular exam: PRESENT: RRR. ABSENT: gallop GI/Abdominal exam: PRESENT: soft, tenderness - Surgical site right upper quadrant, other - TOBIAS drain in abdomen Extremities exam: ABSENT: pedal edema Neurological exam: PRESENT: alert, awake, oriented to situation Skin exam: PRESENT: dry, warm. ABSENT: cyanosis Results Laboratory Results: 08/26/16 04:15 08/26/16 04:15 08/26/16 08/26/16 04:15 04:15 WBC 8.2 RBC 3.44 L Hgb 8.3 L Hct 26.3 L MCV 77 L MCH 24.2 L MCHC 31.7 L RDW 24.3 H Plt Count 246 Sodium 136.7 L Potassium 4.5 Chloride 106 Carbon Dioxide 18 L Anion Gap 13 BUN 17 Creatinine 1.21 Est GFR ( Amer) 52 L Est GFR (Non-Af Amer) 43 L Glucose 142 H Calcium 8.8 Amylase 128 H Lipase 299.1 Impressions: Chest X-Ray 08/23/16 22:10 IMPRESSION: NO ACUTE RADIOGRAPHIC FINDING IN THE CHEST. Abdomen Ultrasound 08/23/16 23:45 IMPRESSION: No cholelithiasis or biliary ductal dilation. Fatty infiltration of the liver. Nonvisualized pancreas. Abdomen/Pelvis CT 08/24/16 01:14 IMPRESSION: No peripancreatic inflammatory changes or fluid collections. Distended gallbladder with pericholecystic fluid, please correlate clinically for acute cholecystitis. Hepatobiliary scan can be obtained as clinically warranted. Mildly dilated common bile duct to 9 mm. Bilateral renal cortical scarring, may represent sequela of prior infections. Small hiatal hernia. Patchy ground-glass opacities in the right middle and lower lobes, may represent multifocal pneumonia. Followup CT after treatment recommended to ensure complete resolution and exclude a different etiology. 6 mm pleural-based nodule in the left lower lobe. Followup as per patient's risk factors. Assessment & Plan - Diagnosis (1) Acute pancreatitis Qualifiers: Pancreatitis type: unspecified pancreatitis type Acute pancreatitis complication: unspecified Qualified Code(s): K85.90 - Acute pancreatitis without necrosis or infection, unspecified Is this a current diagnosis for this admission?: Yes (2) Hydrops of gallbladder Is this a current diagnosis for this admission?: Yes (3) Iron deficiency anemia Qualifiers: Iron deficiency anemia type: unspecified iron deficiency Qualified Code(s): D50.9 - Iron deficiency anemia, unspecified Is this a current diagnosis for this admission?: Yes (4) Fatty liver Is this a current diagnosis for this admission?: Yes (5) Chronic kidney disease, stage III (moderate) Is this a current diagnosis for this admission?: Yes (6) Hypothyroidism (acquired) Is this a current diagnosis for this admission?: Yes (7) Essential hypertension Is this a current diagnosis for this admission?: Yes (8) Anxiety and depression Is this a current diagnosis for this admission?: Yes - Time Time Spent with patient: 25-34 minutes - Plan Summary Plan Summary: Continue IV hydration. Diet advanced per surgical service. Continue antibiotic for now. Findings of cholecystitis was noted. Lipase level is now normal. Pain remains uncontrolled. Continue Dilaudid as needed, discontinue morphine, add oral oxycodone in between. Continue supportive care. Monitor electrolytes.
[2016-08-26] MEDS ORDERED: NORMAL SALINE 250 ML IV PRN ×2 (10:40)
[2016-08-26] MEDS ORDERED: DIPHENHYDRAMINE HCL 25 MG CAPSULE PO PRN (10:40)
[2016-08-26] MEDS: FAMOTIDINE 20 MG TABLET PO SCH ×2 (11:47→23:13)
[2016-08-26] MEDS: LEVOTHYROXINE SODIUM 0.1 MG TABLET PO SCH (11:47)
[2016-08-26] MEDS: OXYCODONE HCL IR 5 MG TABLET PO PRN ×3 (11:52→20:31)
--- NOTE | 2016-08-26 12:08 | PROGRESS NOTE E ---
Progress Note NAME: HI LOONEY : 1940 AGE: 75Y DATE: 08/26/2016 ROOM: 536 SUBJECTIVE: The patient is complaining of moderate incisional pain in the right lateral aspect of the abdomen. No nausea, vomiting reported. She reports flatus and she is tolerating a clear-liquid diet well. OBJECTIVE: VITAL SIGNS: Stable. The patient afebrile. All vital signs within normal limits. INTAKE/OUTPUT: I's and O's for the past 24 hours: Intake 2100, output 1600, with 85 mL from the Damon-Phillips drain. LUNGS: Clear bilaterally. HEART: Regular rhythm and rate. ABDOMEN: Soft. Tender at the incision at the umbilicus and right upper quadrant of the abdomen, where the Damon-Phillips drain is present. DIAGNOSTIC DATA: Review of labs: Electrolytes within normal limits. BUN and creatinine normal at 17 and 1.2. Liver profile is pending. Amylase and lipase of 128 and 299. White blood cell count 8.2, H and H of 8 and 26, platelet count of 246. ASSESSMENT: 1. POSTOPERATIVE DAY #1 FOLLOWING LAPAROSCOPIC CHOLECYSTECTOMY FOR CHOLELITHIASIS AND GALLSTONE PANCREATITIS. 2. PATIENT vitals are STABLE, AFEBRILE. 3. PATIENT TOLERATING CLEAR LIQUIDS WELL. 4. AMYLASE AND LIPASE ALMOST NORMAL. 5. LIVER PROFILE IS PENDING. 6. DECREASED H AND H OF 8.3 AND 26.3. PLAN: 1. Keep the patient on the her liquid diet until the amylase and lipase normalize. 2. Transfuse 2 units of blood today. 3. Will check hemoglobin and hematocrit following the transfusion. DICTATING PHYSICIAN: RICO GAVIRIA M.D. [id number] PHY#: [id number] ID: [id number] JOB#: [id number] ACCT: [id number] cc: > MTDD
[2016-08-26] MEDS: ERTAPENEM SODIUM 1 GM in NORMAL SALINE 50 ML IV SCH (14:22)
[2016-08-26] MEDS ORDERED: FUROSEMIDE INJ/PF 20 MG/2 ML SDV IV ONE (16:45)
[2016-08-27] MEDS: OXYCODONE HCL IR 5 MG TABLET PO PRN ×4 (04:25→19:51)
[2016-08-27 07:43] LABS: MEAN CORPUSCULAR VOLUME 78 fl (80-97)
[2016-08-27 07:52] LABS: HEMATOCRIT 32.7 % (36.0-47.0); HGB HCT DIFFERENCE -0.3; MEAN CORPUSCULAR HEMOGLOBIN 25.7 pg (27.0-33.4); RED BLOOD COUNT 4.21 10^6/uL (3.72-5.28); RED CELL DISTRIBUTION WIDTH 22.7 % (11.5-14.0); WHITE BLOOD COUNT 9.1 10^3/uL (4.0-10.5)
[2016-08-27 07:53] LABS: HEMOGLOBIN 10.8 g/dL (12.0-15.5)
[2016-08-27 08:08] LABS: ALANINE AMINOTRANSFERASE 60 U/L (9-52); ALBUMIN 3.3 g/dL (3.5-5.0); ALKALINE PHOSPHATASE 66 U/L (38-126); AMYLASE 82 U/L (30-110); ANION GAP 10 (5-19); ASPARTATE AMINO TRANSFERASE 61 U/L (14-36); BILIRUBIN,DIRECT 0.2 mg/dL (0.0-0.4); BILIRUBIN,TOTAL 1.4 mg/dL (0.2-1.3); BLOOD UREA NITROGEN 14 mg/dL (7-20); CALCIUM 8.8 mg/dL (8.4-10.2); CARBON DIOXIDE 25 mmol/L (22-30); CHLORIDE 105 mmol/L (98-107); CREATININE RESULT 1.08 mg/dL (0.52-1.25); GLUCOSE 85 mg/dL (75-110); LIPASE 366.5 U/L (23-300); MAGNESIUM 1.6 mg/dL (1.6-2.3); POTASSIUM 3.6 mmol/L (3.6-5.0); SODIUM 140.4 mmol/L (137-145); TOTAL PROTEIN 5.6 g/dL (6.3-8.2)
[2016-08-27] MEDS: FAMOTIDINE 20 MG TABLET PO SCH ×2 (09:31→23:07)
[2016-08-27] MEDS: LEVOTHYROXINE SODIUM 0.1 MG TABLET PO SCH (09:32)
[2016-08-27] MEDS: ENALAPRIL MALEATE 10 MG TABLET PO SCH (09:33)
[2016-08-27] MEDS: ENOXAPARIN SODIUM INJ 40 MG/0.4 ML DISP.SYRIN SUBCUT SCH (09:34)
[2016-08-27] MEDS: NORMAL SALINE 1000 ML 1,000 ML IV PRN ×2 (09:45→23:07)
[2016-08-27 11:35] LABS: ABSOLUTE BASOPHILS # (AUTO) 0.1 10^3/uL (0.0-0.2); ABSOLUTE EOSINOPHILS # (AUTO) 0.3 10^3/uL (0.0-0.6); ABSOLUTE LYMPHOCYTES (AUTO) 2.2 10^3/uL (0.5-4.7); ABSOLUTE MONOCYTES (AUTO) 1.3 10^3/uL (0.1-1.4); BASOPHILS % (AUTO) 0.9 % (0-2); EOSINOPHILS % (AUTO) 2.6 % (0-6); HEMOGLOBIN 11.5 g/dL (12.0-15.5); HGB HCT DIFFERENCE -0.5; LYMPHOCYTES % (AUTO) 22.7 % (13-45); MEAN CORPUSCULAR HEMOGLOBIN 25.9 pg (27.0-33.4); MEAN CORPUSCULAR VOLUME 79 fl (80-97); MONOCYTES % (AUTO) 12.7 % (3-13); RED BLOOD COUNT 4.46 10^6/uL (3.72-5.28); RED CELL DISTRIBUTION WIDTH 23.4 % (11.5-14.0); SEGMENTED NEUTROPHILS % (AUTO) 61.1 % (42-78); WHITE BLOOD COUNT 9.8 10^3/uL (4.0-10.5)
[2016-08-27 11:53] LABS: ALANINE AMINOTRANSFERASE 67 U/L (9-52); ALBUMIN 3.9 g/dL (3.5-5.0); ALKALINE PHOSPHATASE 74 U/L (38-126); ANION GAP 12 (5-19); ASPARTATE AMINO TRANSFERASE 61 U/L (14-36); BILIRUBIN,DIRECT 0.1 mg/dL (0.0-0.4); BLOOD UREA NITROGEN 13 mg/dL (7-20); CALCIUM 9.2 mg/dL (8.4-10.2); CARBON DIOXIDE 27 mmol/L (22-30); CHLORIDE 102 mmol/L (98-107); CREATININE RESULT 1.07 mg/dL (0.52-1.25); GLUCOSE 88 mg/dL (75-110); POTASSIUM 3.5 mmol/L (3.6-5.0); SODIUM 140.6 mmol/L (137-145); TOTAL PROTEIN 6.4 g/dL (6.3-8.2)
--- NOTE | 2016-08-27 12:29 | PROGRESS NOTE E ---
Progress Note NAME: HI LOONEY : 1940 AGE: 75Y DATE: 08/27/2016 ROOM: 536 SUBJECTIVE: The patient has no complaints. She denies abdominal pain following clear liquids. She reports flatus and she feels better today following administration of blood yesterday. OBJECTIVE: VITAL SIGNS: Stable. The patient afebrile. INTAKE/OUTPUT: I's and O's for the past 24 hours: Intake 3800, output 4600. Output from the Damon-Phillips drain about 110 mL with serosanguineous fluid. LUNGS: Clear to auscultation bilaterally. HEART: Regular rhythm and rate. ABDOMEN: Soft, slightly distended. No tenderness. Incision is clean, dry, and intact. Presence of a drain in the right upper quadrant with serosanguineous fluid. DIAGNOSTICS: Review of labs: Electrolytes: BUN and creatinine within normal limits. Liver profile shows a slightly elevated bilirubin at 1.4. AST and ALT within normal limits. Amylase is normal at 82. Lipase is elevated at 366. White blood cell count 9.1, H and H 10 and 32, platelet count 245. ASSESSMENT: 1. POSTOP DAY #2 FOLLOWING LAPAROSCOPIC CHOLECYSTECTOMY FOLLOWING GASTRIC PANCREATITIS. 2. PATIENT REMAINS STABLE AND AFEBRILE. 3. PATIENT TOLERATED FLUIDS WELL. 4. BLOOD WORK WITHIN NORMAL LIMITS EXCEPT FOR THE SLIGHTLY ELEVATED LIPASE WITH NORMAL AMYLASE. 5. PROBABLY ELEVATED HEMOGLOBIN AND HEMATOCRIT FOLLOWING ADMINISTRATION With 2 UNITS OF BLOOD YESTERDAY. PLAN: 1. Advance diet to low fat diet. 2. Stop intravenous narcotics. 3. We will check blood work again tomorrow. If there is no increase of the liver profile or amylase or lipase tomorrow, patient will be discharged to go home tomorrow. DICTATING PHYSICIAN: RICO GAVIRIA M.D. [id number] PHY#: [id number] ID: [id number] JOB#: [id number] ACCT: [id number] cc: >
--- NOTE | 2016-08-27 14:04 | PDOC PROGRESS REPORT ---
Subjective Progress Note for:: 08/27/16 Subjective:: Abdominal pain is much better. Tolerated oral intake today than yesterday. No diarrhea. Denies any chills or fever. No shortness of breath or chest pain. No PND or orthopnea. Physical Exam Vital Signs: Temp Pulse Resp BP Pulse Ox 98.0 F 76 16 136/89 H 94 08/27/16 07:20 08/27/16 12:07 08/27/16 12:07 08/27/16 12:07 08/27/16 12:07 Intake & Output 08/26/16 08/27/16 08/28/16 06:59 06:59 06:59 Intake Total 2680 3859 Output Total 8262 4610 Balance 265 -751 Weight 65.3 kg 63.8 kg General appearance: PRESENT: no acute distress, cooperative Head exam: PRESENT: normocephalic Eye exam: PRESENT: EOMI Mouth exam: PRESENT: moist, neck supple Neck exam: ABSENT: JVD Respiratory exam: PRESENT: clear to auscultation kelly. ABSENT: rhonchi, wheezes Cardiovascular exam: PRESENT: RRR. ABSENT: gallop GI/Abdominal exam: PRESENT: normal bowel sounds, soft, other - TOBIAS drain in place. ABSENT: distended Extremities exam: ABSENT: pedal edema Neurological exam: PRESENT: alert, awake, oriented to situation Skin exam: PRESENT: dry, warm. ABSENT: cyanosis Results Laboratory Results: 08/27/16 11:08 08/27/16 11:08 08/26/16 08/27/16 08/27/16 11:06 06:49 06:49 WBC 9.1 RBC 4.21 Hgb 10.8 L D Hct 32.7 L MCV 78 L MCH 25.7 L MCHC 33.0 RDW 22.7 H Plt Count 245 Seg Neutrophils % Lymphocytes % Monocytes % Eosinophils % Basophils % Absolute Neutrophils Absolute Lymphocytes Absolute Monocytes Absolute Eosinophils Absolute Basophils Sodium 140.4 Potassium 3.6 Chloride 105 Carbon Dioxide 25 Anion Gap 10 BUN 14 Creatinine 1.08 Est GFR ( Amer) > 60 Est GFR (Non-Af Amer) 49 L Glucose 85 Calcium 8.8 Magnesium 1.6 Total Bilirubin 1.4 H AST 61 H ALT 60 H Alkaline Phosphatase 66 Total Protein 5.6 L Albumin 3.3 L Amylase 82 Lipase 366.5 H Blood Type A POSITIVE Antibody Screen POSITIVE 08/27/16 08/27/16 11:08 11:08 WBC 9.8 RBC 4.46 Hgb 11.5 L Hct 35.0 L MCV 79 L MCH 25.9 L MCHC 33.0 RDW 23.4 H Plt Count 255 Seg Neutrophils % 61.1 Lymphocytes % 22.7 Monocytes % 12.7 Eosinophils % 2.6 Basophils % 0.9 Absolute Neutrophils 6.0 Absolute Lymphocytes 2.2 Absolute Monocytes 1.3 Absolute Eosinophils 0.3 Absolute Basophils 0.1 Sodium 140.6 Potassium 3.5 L Chloride 102 Carbon Dioxide 27 Anion Gap 12 BUN 13 Creatinine 1.07 Est GFR ( Amer) > 60 Est GFR (Non-Af Amer) 50 L Glucose 88 Calcium 9.2 Magnesium Total Bilirubin 1.0 AST 61 H ALT 67 H Alkaline Phosphatase 74 Total Protein 6.4 Albumin 3.9 Amylase Lipase Blood Type Antibody Screen Impressions: Chest X-Ray 08/23/16 22:10 IMPRESSION: NO ACUTE RADIOGRAPHIC FINDING IN THE CHEST. Abdomen Ultrasound 08/23/16 23:45 IMPRESSION: No cholelithiasis or biliary ductal dilation. Fatty infiltration of the liver. Nonvisualized pancreas. Abdomen/Pelvis CT 08/24/16 01:14 IMPRESSION: No peripancreatic inflammatory changes or fluid collections. Distended gallbladder with pericholecystic fluid, please correlate clinically for acute cholecystitis. Hepatobiliary scan can be obtained as clinically warranted. Mildly dilated common bile duct to 9 mm. Bilateral renal cortical scarring, may represent sequela of prior infections. Small hiatal hernia. Patchy ground-glass opacities in the right middle and lower lobes, may represent multifocal pneumonia. Followup CT after treatment recommended to ensure complete resolution and exclude a different etiology. 6 mm pleural-based nodule in the left lower lobe. Followup as per patient's risk factors. Assessment & Plan - Diagnosis (1) Acute pancreatitis Qualifiers: Pancreatitis type: unspecified pancreatitis type Acute pancreatitis complication: unspecified Qualified Code(s): K85.90 - Acute pancreatitis without necrosis or infection, unspecified Is this a current diagnosis for this admission?: Yes (2) Hydrops of gallbladder Is this a current diagnosis for this admission?: Yes (3) Iron deficiency anemia Qualifiers: Iron deficiency anemia type: unspecified iron deficiency Qualified Code(s): D50.9 - Iron deficiency anemia, unspecified Is this a current diagnosis for this admission?: Yes (4) Fatty liver Is this a current diagnosis for this admission?: Yes (5) Chronic kidney disease, stage III (moderate) Is this a current diagnosis for this admission?: Yes (6) Hypothyroidism (acquired) Is this a current diagnosis for this admission?: Yes (7) Essential hypertension Is this a current diagnosis for this admission?: Yes (8) Anxiety and depression Is this a current diagnosis for this admission?: Yes - Time Time Spent with patient: 25-34 minutes - Plan Summary Plan Summary: We are going to replace potassium. Recheck electrolytes in the morning. Decrease intravenous fluids. Possible discharge in the morning when cleared by surgical service. Continue supportive care. Out of bed with physical therapy.
[2016-08-27] MEDS: ERTAPENEM SODIUM 1 GM in NORMAL SALINE 50 ML IV SCH (14:39)
[2016-08-27] MEDS ORDERED: POTASSI CL 20 MEQ/50 ML RIDER 20 MEQ/50 ML RTUPB IV SCH (15:00)
[2016-08-27] MEDS ORDERED: POTASSIUM CHLORIDE 10 MEQ TABLET.SA PO ONE (15:30)
[2016-08-28 05:04] LABS: ABSOLUTE BASOPHILS # (AUTO) 0.1 10^3/uL (0.0-0.2); ABSOLUTE EOSINOPHILS # (AUTO) 0.4 10^3/uL (0.0-0.6); ABSOLUTE LYMPHOCYTES (AUTO) 1.8 10^3/uL (0.5-4.7); ABSOLUTE NEUT (AUTO) 4.2 10^3/uL (1.7-8.2); BASOPHILS % (AUTO) 0.9 % (0-2); EOSINOPHILS % (AUTO) 5.4 % (0-6); HEMATOCRIT 33.5 % (36.0-47.0); HGB HCT DIFFERENCE -0.5; MEAN CORPUSCULAR HEMOGLOBIN 25.7 pg (27.0-33.4); MEAN CORPUSCULAR VOLUME 78 fl (80-97); MONOCYTES % (AUTO) 13.8 % (3-13); RED CELL DISTRIBUTION WIDTH 23.4 % (11.5-14.0); SEGMENTED NEUTROPHILS % (AUTO) 55.9 % (42-78); WHITE BLOOD COUNT 7.5 10^3/uL (4.0-10.5)
[2016-08-28 05:31] LABS: ALANINE AMINOTRANSFERASE 55 U/L (9-52); ALBUMIN 3.1 g/dL (3.5-5.0); ALKALINE PHOSPHATASE 71 U/L (38-126); AMYLASE 52 U/L (30-110); ANION GAP 12 (5-19); ASPARTATE AMINO TRANSFERASE 44 U/L (14-36); BILIRUBIN,DIRECT 0.2 mg/dL (0.0-0.4); BILIRUBIN,TOTAL 0.6 mg/dL (0.2-1.3); BLOOD UREA NITROGEN 13 mg/dL (7-20); CALCIUM 8.9 mg/dL (8.4-10.2); CARBON DIOXIDE 25 mmol/L (22-30); CHLORIDE 104 mmol/L (98-107); CREATININE RESULT 1.03 mg/dL (0.52-1.25); GLUCOSE 93 mg/dL (75-110); LIPASE 291.9 U/L (23-300); POTASSIUM 4.1 mmol/L (3.6-5.0); SODIUM 140.6 mmol/L (137-145); TOTAL PROTEIN 5.3 g/dL (6.3-8.2)
[2016-08-28] MEDS: ENOXAPARIN SODIUM INJ 40 MG/0.4 ML DISP.SYRIN SUBCUT SCH (09:25)
[2016-08-28] MEDS: LEVOTHYROXINE SODIUM 0.1 MG TABLET PO SCH (09:26)
[2016-08-28] MEDS: ENALAPRIL MALEATE 10 MG TABLET PO SCH (09:27)
[2016-08-28] MEDS: OXYCODONE HCL IR 5 MG TABLET PO PRN (09:27)
[2016-08-28] MEDS: FAMOTIDINE 20 MG TABLET PO SCH (09:27)
--- NOTE | 2016-08-28 12:47 | PDOC PROGRESS REPORT ---
Subjective Progress Note for:: 08/28/16 Subjective:: Denies any complaints. She is having minimal pain and able to tolerate a diet well. Physical Exam Vital Signs: Temp Pulse Resp BP Pulse Ox 97.9 F 71 16 155/87 H 98 08/28/16 07:20 08/28/16 07:20 08/28/16 07:20 08/28/16 07:20 08/28/16 07:20 Intake & Output 08/27/16 08/28/16 08/29/16 06:59 06:59 06:59 Intake Total 3859 2661 Output Total 4610 2200 Balance -751 461 Weight 63.8 kg 63.2 kg General appearance: PRESENT: no acute distress Eye exam: PRESENT: conjunctiva pink. ABSENT: scleral icterus Mouth exam: PRESENT: moist, tongue midline Neck exam: ABSENT: JVD Respiratory exam: PRESENT: clear to auscultation kelly. ABSENT: rales, rhonchi, wheezes Cardiovascular exam: PRESENT: RRR. ABSENT: diastolic murmur, rubs, systolic murmur GI/Abdominal exam: PRESENT: normal bowel sounds, soft, tenderness - Minimal tenderness., other - Drain in place in the right upper quadrant.. ABSENT: distended, guarding, mass, organolmegaly, rebound Extremities exam: ABSENT: calf tenderness, clubbing, pedal edema Neurological exam: PRESENT: alert, awake, oriented to person, oriented to place , oriented to time, oriented to situation, CN II-XII grossly intact. ABSENT: motor sensory deficit Psychiatric exam: PRESENT: appropriate affect Skin exam: PRESENT: dry, intact, warm. ABSENT: cyanosis, rash Results Laboratory Results: 08/28/16 04:52 08/28/16 04:52 08/28/16 08/28/16 04:52 04:52 WBC 7.5 RBC 4.30 Hgb 11.0 L Hct 33.5 L MCV 78 L MCH 25.7 L MCHC 33.0 RDW 23.4 H Plt Count 236 Seg Neutrophils % 55.9 Lymphocytes % 24.0 Monocytes % 13.8 H Eosinophils % 5.4 Basophils % 0.9 Absolute Neutrophils 4.2 Absolute Lymphocytes 1.8 Absolute Monocytes 1.0 Absolute Eosinophils 0.4 Absolute Basophils 0.1 Sodium 140.6 Potassium 4.1 Chloride 104 Carbon Dioxide 25 Anion Gap 12 BUN 13 Creatinine 1.03 Est GFR ( Amer) > 60 Est GFR (Non-Af Amer) 52 L Glucose 93 Calcium 8.9 Total Bilirubin 0.6 AST 44 H ALT 55 H Alkaline Phosphatase 71 Total Protein 5.3 L Albumin 3.1 L Amylase 52 Lipase 291.9 Impressions: Chest X-Ray 08/23/16 22:10 IMPRESSION: NO ACUTE RADIOGRAPHIC FINDING IN THE CHEST. Abdomen Ultrasound 08/23/16 23:45 IMPRESSION: No cholelithiasis or biliary ductal dilation. Fatty infiltration of the liver. Nonvisualized pancreas. Abdomen/Pelvis CT 08/24/16 01:14 IMPRESSION: No peripancreatic inflammatory changes or fluid collections. Distended gallbladder with pericholecystic fluid, please correlate clinically for acute cholecystitis. Hepatobiliary scan can be obtained as clinically warranted. Mildly dilated common bile duct to 9 mm. Bilateral renal cortical scarring, may represent sequela of prior infections. Small hiatal hernia. Patchy ground-glass opacities in the right middle and lower lobes, may represent multifocal pneumonia. Followup CT after treatment recommended to ensure complete resolution and exclude a different etiology. 6 mm pleural-based nodule in the left lower lobe. Followup as per patient's risk factors. Assessment & Plan - Diagnosis (1) Acute pancreatitis Qualifiers: Pancreatitis type: unspecified pancreatitis type Acute pancreatitis complication: unspecified Qualified Code(s): K85.90 - Acute pancreatitis without necrosis or infection, unspecified Is this a current diagnosis for this admission?: YesPlan: Patient is doing well status post cholecystectomy. She still has a drain in place. Once she is cleared by surgery she could be discharged. (2) Anxiety and depression Is this a current diagnosis for this admission?: YesPlan: Stable (3) Chronic kidney disease, stage III (moderate) Is this a current diagnosis for this admission?: YesPlan: Patient is euvolemic (4) Essential hypertension Is this a current diagnosis for this admission?: YesPlan: Blood pressure stable on enalapril. (5) Hypothyroidism (acquired) Is this a current diagnosis for this admission?: YesPlan: Continue with Synthroid. (6) Iron deficiency anemia Qualifiers: Iron deficiency anemia type: unspecified iron deficiency Qualified Code(s): D50.9 - Iron deficiency anemia, unspecified Is this a current diagnosis for this admission?: YesPlan: Hemoglobin is stable. - Time Time Spent with patient: 25-34 minutes - Plan Summary Plan Summary: Patient will be ready for discharge when she is cleared by surgery.
[2016-08-28] MEDS: ERTAPENEM SODIUM 1 GM in NORMAL SALINE 50 ML IV SCH (14:26)
[2016-08-28] MEDS: NORMAL SALINE 1000 ML 1,000 ML IV PRN (14:26)
--- NOTE | 2016-08-28 17:03 | PROGRESS NOTE E ---
Progress Note NAME: HI LOONEY : 1940 AGE: 75Y DATE: 08/28/2016 ROOM: 536 SUBJECTIVE: The patient has no complaints, tolerating p.o.'s well. She has had one bowel movement yesterday. OBJECTIVE: VITAL SIGNS: Vital signs are stable. Patient is afebrile. All vital signs within normal limits. I and O's for the past 24 hours: intake 2600; 20 mL out of the Damon-Phillips drain. REVIEW OF LABS: CBC within normal limits. White blood cell count 7, hemoglobin 11, hematocrit 33, platelet count 236. Electrolytes normal. Liver profile within normal limits. Lipase and amylase were normal. LUNGS: Clear bilaterally. HEART: Regular rhythm and rate. ABDOMEN: Soft, nontender and nondistended. All incisions are clean, dry and intact. No peritonitis. Drain in the right upper quadrant with serosanguineous fluid. ASSESSMENT: 1. Postop day #3 following laparoscopic cholecystectomy for gallstones pancreatitis. 2. Patient hemodynamically stable and afebrile. 3. Blood work within normal limits. 4. Physical exam unremarkable. 5. Moderate amount of output from Damon-Phillips drain. PLAN: 1. Discharge her home today. 2. Augmentin 875 mg p.o. b.i.d. for 10 days. 3. Sponge bath only. 4. The patient to measure output from the drain daily and bring records to the office. 5. Follow up in the surgery office in about a week. DICTATING PHYSICIAN: RICO GAVIRIA M.D. [id number] PHY#: [id number] ID: [id number] JOB#: [id number] ACCT: [id number] cc: > MTDD
--- NOTE | 2016-08-28 17:55 | PDOC DISCHARGE SUMMARY ---
General - Admit/Disc Date/PCP Admission Date/Primary Care Provider: 08/24/16 10:02 Discharge Date: 08/28/16 - Discharge Diagnosis (1) Acute pancreatitis Is this a current diagnosis for this admission?: YesSummary: Secondary to cholecystitis. Status post cholecystectomy (2) Anxiety and depression Is this a current diagnosis for this admission?: Yes (3) Chronic kidney disease, stage III (moderate) Is this a current diagnosis for this admission?: Yes (4) Essential hypertension Is this a current diagnosis for this admission?: Yes (5) Hypothyroidism (acquired) Is this a current diagnosis for this admission?: Yes (6) Iron deficiency anemia Is this a current diagnosis for this admission?: Yes - Additional Information Resuscitation Status: Full Code Discharge Diet: Cardiac, Other (Comments) - 1 cup yogurt daily daily Discharge Activity: Activity As Tolerated Home Medications: Acetaminophen [Tylenol] 1 tab PO PRN PRN 08/24/16 Amitriptyline HCl [Elavil 10 mg Tablet] 20 mg PO DAILY 08/24/16 Chlorthalidone [Chlorthalidone 25 mg Tablet] 1 tab PO DAILY 08/24/16 Citalopram Hydrobromide [Celexa 20 mg Tablet] 20 mg PO DAILY 08/24/16 Diphenhydramine HCl [Benadryl] 25 mg PO DAILY 08/24/16 Enalapril Maleate 20 mg PO DAILY 08/24/16 Iron 65 mg PO BID 08/24/16 Levothyroxine Sodium 100 mcg PO DAILY 08/24/16 Omeprazole 20 mg PO DAILY 08/24/16 Red Yeast Rice 1,200 mg PO DAILY 08/24/16 Ubidecarenone [Co Q-10] 100 mg PO DAILY 08/24/16 Levofloxacin [Levaquin 500 mg Tablet] 500 mg PO DAILY #10 tablet 08/28/16 Metronidazole [Flagyl 500 mg Tablet] 500 mg PO TID #30 tablet 08/28/16 Oxycodone HCl [Oxy-Ir 5 mg Tablet] 5 mg PO Q4HP PRN #30 tablet 08/28/16 History of Present Illness History of Present Illness: HI LOONEY is a 75 year old female who presented to emergency room with a one-day history of abdominal pain that radiated through to her back. Patient was found to have pancreatitis lipase of 34,[address] scan of the abdomen showed distended gallbladder. Patient was felt to have cholelithiasis as the cause for the pancreatitis. Hospital Course Hospital Course: 75-year-old female who presented pancreatic [place] secondary to cholelithiasis. The patient was made nothing by mouth and given IV fluids. Patient was evaluated by surgery who performed a cholecystectomy. Patient postoperatively on the day of discharge she was eating well without difficulty but was still requiring a surgical drain. Patient was evaluated by surgery and felt that she was stable for discharge with the drain. Patient will follow-up with the surgeons in 1 week. Physical Exam Vital Signs: Temp Pulse Resp BP Pulse Ox 98.1 F 72 18 137/84 H 100 08/28/16 16:19 08/28/16 16:19 08/28/16 16:19 08/28/16 16:19 08/28/16 16:19 Intake & Output 08/27/16 08/28/16 08/29/16 06:59 06:59 06:59 Intake Total 3859 2661 Output Total 4610 2200 Balance -751 461 Weight 63.8 kg 63.2 kg General appearance: PRESENT: no acute distress Eye exam: PRESENT: conjunctiva pink. ABSENT: scleral icterus Mouth exam: PRESENT: moist, tongue midline Neck exam: ABSENT: carotid bruit, JVD, lymphadenopathy, thyromegaly Respiratory exam: PRESENT: clear to auscultation kelly. ABSENT: rales, rhonchi, wheezes Cardiovascular exam: PRESENT: RRR. ABSENT: diastolic murmur, rubs, systolic murmur GI/Abdominal exam: PRESENT: normal bowel sounds, soft, tenderness - Minimal right upper quadrant tenderness. With a surgical drain in place.. ABSENT: distended, guarding, mass, organolmegaly, rebound Extremities exam: ABSENT: calf tenderness, clubbing, pedal edema Neurological exam: PRESENT: alert, awake, oriented to person, oriented to place , oriented to time, oriented to situation, CN II-XII grossly intact. ABSENT: motor sensory deficit Psychiatric exam: PRESENT: appropriate affect Skin exam: PRESENT: dry, intact, warm. ABSENT: cyanosis, rash Results Laboratory Results: 08/28/16 04:52 08/28/16 04:52 08/28/16 08/28/16 04:52 04:52 WBC 7.5 RBC 4.30 Hgb 11.0 L Hct 33.5 L MCV 78 L MCH 25.7 L MCHC 33.0 RDW 23.4 H Plt Count 236 Seg Neutrophils % 55.9 Lymphocytes % 24.0 Monocytes % 13.8 H Eosinophils % 5.4 Basophils % 0.9 Absolute Neutrophils 4.2 Absolute Lymphocytes 1.8 Absolute Monocytes 1.0 Absolute Eosinophils 0.4 Absolute Basophils 0.1 Sodium 140.6 Potassium 4.1 Chloride 104 Carbon Dioxide 25 Anion Gap 12 BUN 13 Creatinine 1.03 Est GFR ( Amer) > 60 Est GFR (Non-Af Amer) 52 L Glucose 93 Calcium 8.9 Total Bilirubin 0.6 AST 44 H ALT 55 H Alkaline Phosphatase 71 Total Protein 5.3 L Albumin 3.1 L Amylase 52 Lipase 291.9 Impressions: Chest X-Ray 08/23/16 22:10 IMPRESSION: NO ACUTE RADIOGRAPHIC FINDING IN THE CHEST. Abdomen Ultrasound 08/23/16 23:45 IMPRESSION: No cholelithiasis or biliary ductal dilation. Fatty infiltration of the liver. Nonvisualized pancreas. Abdomen/Pelvis CT 08/24/16 01:14 IMPRESSION: No peripancreatic inflammatory changes or fluid collections. Distended gallbladder with pericholecystic fluid, please correlate clinically for acute cholecystitis. Hepatobiliary scan can be obtained as clinically warranted. Mildly dilated common bile duct to 9 mm. Bilateral renal cortical scarring, may represent sequela of prior infections. Small hiatal hernia. Patchy ground-glass opacities in the right middle and lower lobes, may represent multifocal pneumonia. Followup CT after treatment recommended to ensure complete resolution and exclude a different etiology. 6 mm pleural-based nodule in the left lower lobe. Followup as per patient's risk factors. Qualifiers PATEINT BEING DISCHARGED WITH ANY OF THE FOLLOWING DIAGNOSIS?: No Plan Discharge Plan: Patient is discharged to home. Please note the patient was not given a prescription for oxycodone. Time Spent: Greater than 30 Minutes
[2016-08-28 18:41] VITALS: BP 140/87
== END 2016-08-28 18:50 | disposition home or self-care (01) | DRG 418 ==
LOC: ER 21:30 → EH 08-24 10:02 → UNDOADMIN 08-24 10:50 → 5 08-24 15:18
PROC: 0FT44ZZ Resection of Gallbladder, Percutaneous Endoscopic Approach (ICD-10-PCS; principal; 2016-08-25 13:00)
PROC: 30233N1 Transfusion of Nonautologous Red Blood Cells into Peripheral Vein, Percutaneous Approach (ICD-10-PCS; 2016-08-26)
DX: K85.10 Biliary acute pancreatitis without necrosis or infection (principal); K81.2 Acute cholecystitis with chronic cholecystitis; K82.1 Hydrops of gallbladder; F32.9 Major depressive disorder, single episode, unspecified; I12.9 Hypertensive chronic kidney disease with stage 1 through stage 4 chronic kidney disease, or unspecified chronic kidney disease; N18.3 Chronic kidney disease, stage 3 (moderate); E03.9 Hypothyroidism, unspecified; D50.9 Iron deficiency anemia, unspecified; K76.0 Fatty (change of) liver, not elsewhere classified; K44.9 Diaphragmatic hernia without obstruction or gangrene; F41.1 Generalized anxiety disorder; Z79.899 Other long term (current) drug therapy; Z86.718 Personal history of other venous thrombosis and embolism; Z80.49 Family history of malignant neoplasm of other genital organs; Z82.49 Family history of ischemic heart disease and other diseases of the circulatory system
CPT/HCPCS: 00790; 36415; 36430; 71010; 74177; 76705; 80048; 80053; 81001; 82150; 82550; 82553; 83690; 83735; 84100; 84439; 84443; 84484; 85025; 85027; 86850; 86870; 86900; 86901; 86920; 86922; 87040; 88304; 93005; 93010; 93976; 94799; 96361; 96365; 96375; 99285; G8978-GP; G8979-GP; G8980-GP; J0131; J0330; J1100; J1170; J1335; J1650; J1885; J1940; J1956; J2250; J2270; J2405; J2543; J2704; J2765; J3010; J3490; J7030; J7050; P9016; S0028

== ENCOUNTER 2016-10-08 14:17 | Emergency (ER) | payer MEDICARE ==
--- NOTE | 2016-10-08 14:34 | ER Document Report ---
ED GI/ - General Mode of Arrival: Medic Information source: Patient, Emergency Med Personnel TRAVEL OUTSIDE OF THE [place] IN LAST 30 DAYS: No - HPI Patient complains to provider of: Other - nausea Onset: Just prior to arrival Associated symptoms: Other - See above <ERICK STARK - Last Filed: 10/08/16 15:46> <JOSÉ OVIEDO - Last Filed: 10/08/16 17:41> - General Chief Complaint: Nausea Stated Complaint: NAUSEA Notes: Patient is a 75 year old female, with a past medical history including GERD and hypothyroidism, who presents to the emergency department complaining of nausea. Per EMS, patient was at work at a [employer] when her sister brought her a chicken salad sandwich, an hour after eating her lunch patient began to feel ill. Patient states that she has now been nauseated for about an hour and has vomited about 5 times since start of sickness, patient also complains of diarrhea that started after her arrival to this facility. Patient denies abdominal pain and reports she felt fine this morning. Per EMS patient was given Zofran en route with no relief and Phenergan with some relief. Patient had a cholecystectomy performed on 08/25/16 due to gallbladder pancreatitis. Patient states she has not been on any antibiotics since the surgery. PCP: Dr. Gregorio Baugh (ERICK STARK) - Related Data Allergies/Adverse Reactions: Penicillins Allergy (Verified 08/24/16 11:59) Past Medical History - General Information source: Patient - Social History Smoking Status: Never Smoker Family History: Reviewed & Not Pertinent - Past Medical History Cardiac Medical History: Reports: Hx Hypertension, Other - Hx anemia Endocrine Medical History: Reports: Hx Hypothyroidism GI Medical History: Reports: Hx Gastroesophageal Reflux Disease Psychiatric Medical History: Reports: Hx Depression Past Surgical History: Reports: Hx Cholecystectomy, Other - Breast surgery for a benign cyst <ERICK STARK - Last Filed: 10/08/16 15:46> Review of Systems - Review of Systems Constitutional: No symptoms reported EENT: No symptoms reported Cardiovascular: No symptoms reported Respiratory: No symptoms reported Gastrointestinal: See HPI, Diarrhea, Nausea, Vomiting. denies: Abdominal pain Genitourinary: No symptoms reported Female Genitourinary: No symptoms reported Musculoskeletal: No symptoms reported Skin: No symptoms reported Hematologic/Lymphatic: No symptoms reported Neurological/Psychological: No symptoms reported -: Yes All other systems reviewed and negative <ERICK STARK - Last Filed: 10/08/16 15:46> Physical Exam - Vital signs Interpretation: Normal - General General appearance: Appears well, Alert - HEENT Head: Normocephalic, Atraumatic - Respiratory Respiratory status: No respiratory distress Chest status: Nontender Breath sounds: Normal Chest palpation: Normal - Cardiovascular Rhythm: Regular Heart sounds: Normal auscultation Murmur: No Pulses: Decreased: Radial - reportedly normal for patient - Abdominal Inspection: Normal Distension: No distension Bowel sounds: Normal - active Tenderness: Nontender Organomegaly: No organomegaly - Extremities General upper extremity: Normal inspection General lower extremity: Normal inspection - Neurological Neuro grossly intact: Yes Cognition: Normal Orientation: AAOx4 [place] Coma Scale Eye Opening: Spontaneous [place] Coma Scale Verbal: Oriented [place] Coma Scale Motor: Obeys Commands [place] Coma Scale Total: 15 Speech: Normal - Psychological Associated symptoms: Normal affect, Normal mood - Skin Skin Temperature: Warm Skin Moisture: Dry Skin Color: Normal <ERICK STARK - Last Filed: 10/08/16 15:46> Course - Laboratory Result Diagrams: 10/08/16 15:01 10/08/16 15:01 <ERICK STARK - Last Filed: 10/08/16 15:46> - Laboratory Result Diagrams: 10/08/16 15:01 10/08/16 15:01 <JOSÉ OVIEDO - Last Filed: 10/08/16 17:41> - Re-evaluation Re-evalutation: 10/08/16 16:50 Patient reports she does feel much better and the nausea is gone at this time. Her lab work suggests she has a urinary tract infection in addition to the nausea vomiting diarrhea. We will try an oral dose of Septra and culture the urine. (JOSÉ OVIEDO) - Vital Signs Vital signs: Temp Pulse Resp BP Pulse Ox 56 L 18 109/66 95 10/08/16 16:35 10/08/16 16:35 10/08/16 16:35 10/08/16 16:35 - Laboratory Laboratory results interpreted by me: 10/08/16 10/08/16 10/08/16 15:01 15:01 15:01 RDW 20.8 H BUN 21 H Creatinine 1.96 H Est GFR ( Amer) 30 L Est GFR (Non-Af Amer) 25 L Ur Leukocyte Esterase Stool for White Cells RARE H 10/08/16 16:02 RDW BUN Creatinine Est GFR ( Amer) Est GFR (Non-Af Amer) Ur Leukocyte Esterase LARGE H Stool for White Cells Discharge <ERICK STARK - Last Filed: 10/08/16 15:46> <JOSÉ OVIEDO - Last Filed: 10/08/16 17:41> - Discharge Clinical Impression: Nausea, vomiting and diarrhea Urinary tract infection Qualifiers: Urinary tract infection type: site unspecified Hematuria presence: without hematuria Qualified Code(s): N39.0 - Urinary tract infection, site not specified Condition: Stable Additional Instructions: Nausea or Vomiting, Nonspecific: Vomiting (or nausea without vomiting) can be caused by many different problems. Of course, it can mean that something's wrong with the stomach, such as "stomach flu," ulcers, or inflammation. But it can also be a symptom of a problem that has nothing to do with the stomach or intestines. Vomiting is common with severe headaches, earaches, and tonsillitis. We see it with pneumonia or heart attacks. Drugs can cause nausea. Many abdominal problems cause vomiting; for example, gallstones, kidney stones, pancreatitis, and intestinal obstruction (blocked bowels). In most cases, curing the vomiting depends on fixing the problem that caused it. For temporary relief, we may use an anti-nausea medicine. For home use, we can prescribe suppositories, chewable pills, pills that dissolve in the mouth, or liquid anti-nausea drugs. If the vomiting seems to be caused by a problem in the stomach, acid-suppressing drugs may be prescribed as well. It's important to avoid dehydration. Sip clear liquids. Take increasing amounts of fluid over the first 24 hours. Then start small amounts of bland foods (such as dry toast, applesauce, mashed potato). Avoid aspirin, tobacco, and alcohol. Gradually resume your usual diet. If the vomiting worsens, if the problem that's making you vomit worsens, or if there's evidence of bleeding in the stomach (such as black, tarry stool, bloody or black vomit, or lightheadedness), you should return immediately. Call your doctor if you aren't improved in 24 to 36 hours. Urinary Tract Infection: Your evaluation indicates that you have a urinary tract infection. This is due to germs growing in the bladder. This is a common problem. This infection usually responds quickly to antibiotics. Your antibiotic should be taken exactly as prescribed. Drink plenty of fluids -- three to four quarts a day. Occasionally, a bladder anesthetic will be prescribed to help stop the feeling of urgency until the antibiotic has a chance to clear the infection. This may cause your urine to be dark orange. Certain urine infections require a culture. If the doctor obtained a culture, the results will be back in two days. You should call to see if a change in treatment is needed. A repeat urinalysis after you finish treatment is often recommended. The physician will let you know if further testing is required. Call the doctor if you develop fever, chills, flank pain, inability to urinate, or blood in the urine. TAKE THE MEDICATION PRESCRIBED FOR URINE INFECTION AND NAUSEA. DRINK COOL CLEAR LIQUIDS TODAY. REST. FOLLOW UP WITH YOUR DOCTOR IF NOT IMPROVING. RETURN TO THE EMERGENCY ROOM IF ANY NEW OR WORSENING SYMPTOMS. Prescriptions: Promethazine HCl [Phenergan 25 mg Tablet] 25 mg PO Q4 PRN #12 tablet PRN Reason: Sulfamethoxazole/Trimethoprim [Septra-Ds 800-160 mg Tablet] 1 tab PO BID #14 tablet Scribe Attestation: 10/08/16 17:41 I personally performed the services described in the documentation, reviewed and edited the documentation which was dictated to the scribe in my presence, and it accurately records my words and actions. (JOSÉ OVIEDO) Scribe Documentation - Scribe Written by Shiva:: shiva Mena, 10/08/16, [id number] acting as scribe for :: Cam <ERICK STARK - Last Filed: 10/08/16 15:46>
[2016-10-08] MEDS ORDERED: NORMAL SALINE 1000 ML 1,000 ML IV ONE (14:36)
[2016-10-08 15:29] LABS: ABSOLUTE BASOPHILS # (AUTO) 0.1 10^3/uL (0.0-0.2); ABSOLUTE EOSINOPHILS # (AUTO) 0.2 10^3/uL (0.0-0.6); ABSOLUTE LYMPHOCYTES (AUTO) 1.6 10^3/uL (0.5-4.7); ABSOLUTE MONOCYTES (AUTO) 0.6 10^3/uL (0.1-1.4); ABSOLUTE NEUT (AUTO) 6.5 10^3/uL (1.7-8.2); BASOPHILS % (AUTO) 1.2 % (0-2); EOSINOPHILS % (AUTO) 1.9 % (0-6); HEMATOCRIT 38.3 % (36.0-47.0); HEMOGLOBIN 12.7 g/dL (12.0-15.5); HGB HCT DIFFERENCE -0.2; LYMPHOCYTES % (AUTO) 17.7 % (13-45); MEAN CORPUSCULAR HEMOGLOBIN 27.8 pg (27.0-33.4); MEAN CORPUSCULAR HGB CONC 33.1 g/dL (32.0-36.0); MEAN CORPUSCULAR VOLUME 84 fl (80-97); MONOCYTES % (AUTO) 6.9 % (3-13); RED BLOOD COUNT 4.56 10^6/uL (3.72-5.28); RED CELL DISTRIBUTION WIDTH 20.8 % (11.5-14.0); SEGMENTED NEUTROPHILS % (AUTO) 72.3 % (42-78); WHITE BLOOD COUNT 8.9 10^3/uL (4.0-10.5)
[2016-10-08 15:46] LABS: ALANINE AMINOTRANSFERASE 34 U/L (9-52); ALKALINE PHOSPHATASE 68 U/L (38-126); ANION GAP 12 (5-19); ASPARTATE AMINO TRANSFERASE 32 U/L (14-36); BILIRUBIN,DIRECT 0.3 mg/dL (0.0-0.4); BILIRUBIN,TOTAL 0.4 mg/dL (0.2-1.3); BLOOD UREA NITROGEN 21 mg/dL (7-20); CALCIUM 9.8 mg/dL (8.4-10.2); CARBON DIOXIDE 22 mmol/L (22-30); CHLORIDE 106 mmol/L (98-107); CREATININE RESULT 1.96 mg/dL (0.52-1.25); GLUCOSE 109 mg/dL (75-110); LIPASE 187.7 U/L (23-300); POTASSIUM 4.5 mmol/L (3.6-5.0); SODIUM 140.4 mmol/L (137-145); TOTAL PROTEIN 6.5 g/dL (6.3-8.2)
[2016-10-08 16:20] LABS: APPEARANCE,URINE SLIGHTLY-CLOUDY; BILIRUBIN,URINE NEGATIVE (NEGATIVE); GLUCOSE, URINE NEGATIVE (NEGATIVE); KETONES,URINE NEGATIVE (NEGATIVE); LEUKOCYTE ESTERASE,URINE LARGE (NEGATIVE); NITRITE,URINE NEGATIVE (NEGATIVE); PROTEIN,URINE NEGATIVE (NEGATIVE); URINE SPECIFIC GRAVITY 1.012; UROBILINOGEN,URINE NEGATIVE mg/dL (<2.0)
[2016-10-08] MEDS ORDERED: SULFAMETHOXAZOLE/TRIMETHOPRIM 800-160 MG TABLET PO ONE (16:49)
[2016-10-08 17:59] VITALS: BP 106/52
== END 2016-10-08 17:59 | disposition home or self-care (01) ==
LOC: ER 14:17
DX: R11.2 Nausea with vomiting, unspecified (principal); R19.7 Diarrhea, unspecified; N39.0 Urinary tract infection, site not specified; I10 Essential (primary) hypertension; Z90.49 Acquired absence of other specified parts of digestive tract; Z88.0 Allergy status to penicillin; Z87.19 Personal history of other diseases of the digestive system
CPT/HCPCS: 99283; 96360; 36415; 87045; 87086; 89055; 87205; 83690; 83735; 85025; 82272; 80053; 81001; 87493 ×2; A9270; J7030

== ENCOUNTER 2016-11-11 07:45 | Emergency (ER) | payer MEDICARE ==
[2016-11-11] MEDS ORDERED: LIDOCAINE 5% (700 MG) TRANSDERMAL ADH..PATCH TP ONE (09:55)
[2016-11-11] MEDS ORDERED: TRAMADOL HCL 50 MG TABLET PO ONE (09:55)
[2016-11-11] MEDS ORDERED: DEXAMETHASONE 4 MG TABLET PO ONE (10:02)
--- NOTE | 2016-11-11 10:02 | ER Document Report ---
ED General - General Chief Complaint: Leg Pain Stated Complaint: R LEG PAIN Time Seen by Provider: 11/11/16 08:25 TRAVEL OUTSIDE OF THE [place] IN LAST 30 DAYS: No - HPI Patient complains to provider of: Right leg pain Notes: Patient is coming in for right leg pain. States she has been treated by her primary care physician for a muscle strain behind her right leg states that she has been taking Flexeril and soma patient states this morning pain is exquisitely worse. Denies any swelling denies any injury patient states able to ambulate patient denies any pain below the knee denies any back pain. Patient denies any history of having this pain before - Related Data Allergies/Adverse Reactions: Penicillins Allergy (Verified 11/11/16 07:50) Past Medical History - Social History Smoking Status: Unknown if Ever Smoked Family History: Reviewed & Not Pertinent Patient has suicidal ideation: No Patient has homicidal ideation: No - Past Medical History Cardiac Medical History: Reports: Hx Hypertension Endocrine Medical History: Reports: Hx Hypothyroidism Renal/ Medical History: Denies: Hx Peritoneal Dialysis GI Medical History: Reports: Hx Gastroesophageal Reflux Disease Psychiatric Medical History: Reports: Hx Depression Past Surgical History: Reports: Hx Cholecystectomy, Other - Breast surgery for a benign cyst Review of Systems - Review of Systems Constitutional: No symptoms reported EENT: No symptoms reported Cardiovascular: No symptoms reported Respiratory: No symptoms reported Gastrointestinal: No symptoms reported Genitourinary: No symptoms reported Female Genitourinary: No symptoms reported Musculoskeletal: Other - Pain Skin: No symptoms reported Hematologic/Lymphatic: No symptoms reported Neurological/Psychological: No symptoms reported Physical Exam - Vital signs Vitals: Temp Pulse Resp BP Pulse Ox 97.5 F 71 18 144/82 H 99 11/11/16 07:50 11/11/16 07:50 11/11/16 07:50 11/11/16 07:50 11/11/16 07:50 Interpretation: Normal - General General appearance: Appears well, Alert - HEENT Head: Normocephalic, Atraumatic Eyes: Normal Pupils: PERRL - Respiratory Respiratory status: No respiratory distress Chest status: Nontender Breath sounds: Normal Chest palpation: Normal - Cardiovascular Rhythm: Regular Heart sounds: Normal auscultation Murmur: No - Abdominal Inspection: Normal Distension: No distension Bowel sounds: Normal Tenderness: Nontender Organomegaly: No organomegaly - Back Back: Normal, Nontender - Extremities General upper extremity: Normal inspection, Nontender, Normal color, Normal ROM , Normal temperature General lower extremity: Normal inspection, Nontender, Normal color, Normal ROM , Normal temperature, Normal weight bearing. No: Tender, Edema, Raymond's sign - Neurological Neuro grossly intact: Yes Cognition: Normal Orientation: AAOx4 Combs Coma Scale Eye Opening: Spontaneous Combs Coma Scale Verbal: Oriented Combs Coma Scale Motor: Obeys Commands Combs Coma Scale Total: 15 Speech: Normal Motor strength normal: LUE, RUE, LLE, RLE Sensory: Normal - Psychological Associated symptoms: Normal affect, Normal mood - Skin Skin Temperature: Warm Skin Moisture: Dry Skin Color: Normal Course - Re-evaluation Re-evalutation: 11/11/16 15:02 11/11/16 15:04 Patient underwent bedside ultrasound looking at the venous supply in the right leg. Able to compress the the veins throughout the leg. Patient does not show any signs of DVT. Will treat patient with pain medication advised on taking her Flexeril soma patient also given a Lidoderm patch patient will be discharged home - Vital Signs Vital signs: Temp Pulse Resp BP Pulse Ox 97.5 F 65 17 150/87 H 100 11/11/16 07:50 11/11/16 10:25 11/11/16 10:25 11/11/16 10:25 11/11/16 10:25 Discharge - Discharge Clinical Impression: Right leg pain Condition: Good Disposition: HOME, SELF-CARE Instructions: Leg Cramps ([facility]), Leg Pain Nonspecific ([facility]) Additional Instructions: We will start you on a pain medication: Ultram. SHe may take this pain medication for very severe pain. I would also recommend she continue Tylenol as recommended by her doctor. I would not recommend taking any more Flexeril or Soma. I would also recommend icing her leg with ice packs. I recommend following up with your primary care physician in 1 week if symptoms continue. If you receive good pain relief with the Lidoderm patch I would recommend speaking with your pharmacist about an [id number] option. Prescriptions: Tramadol HCl [Ultram 50 mg Tablet] 50 mg PO ASDIR PRN #20 tablet PRN Reason: Referrals: THO MOJICA MD [Primary Care Provider] - Follow up as needed
[2016-11-11 10:27] VITALS: BP 150/87
== END 2016-11-11 10:25 | disposition home or self-care (01) ==
LOC: ER 07:45
DX: M79.604 Pain in right leg (principal); I10 Essential (primary) hypertension; Z88.0 Allergy status to penicillin
CPT/HCPCS: 99283; A9270 ×2

== ENCOUNTER → 2017-08-13 | Outpatient (CLI) | payer MEDICARE ==
--- NOTE | 2017-08-13 15:55 | WOMENS IMAGING REPORT ---
EXAM DESCRIPTION: 3D SCREENING MAMMO BILAT COMPLETED DATE/TIME: 08/13/2017 10:50 am REASON FOR STUDY: ROUTINE SCREENING;Z12.31 Z12.31 ENCNTR SCREEN MAMMOGRAM FOR MALIGNANT NEOPLASM OF OLAMIDE COMPARISON: 06/25/2016 and 06/17/2015. TECHNIQUE: Standard craniocaudal and mediolateral oblique views of each breast recorded using digita l acquisition and breast tomosynthesis. LIMITATIONS: None. FINDINGS: Findings present which are benign by mammographic criteria. No suspicious masses, calcifi cations or architectural distortion. Pertinent benign findings: Stable nodule in the lateral right breast. Read with the assistance of CAD. .[facility] - R2 Cenova Version 1.3 .[facility] Imaging - R2 Cenova Version 1.3 .[facility] Imaging - R2 Cenova Version 2.4 .[facility] - R2 Cenova Version 2.4 .[facility] - R2 Negative Spotter Version 9.2 Benign mammographic findings may include one or more of the following: Smooth masses, popcorn/rim/co arse calcifications, asymmetries, post-procedure changes, and lesions with long-standing stability. IMPRESSION: BENIGN MAMMOGRAPHIC FINDINGS. BIRADS 2 BREAST DENSITY: b. There are scattered areas of fibroglandular density. BIRAD: 2 BENIGN FINDING(S) RECOMMENDATION: RECOMMENDATION: ROUTINE SCREENING COMMENT: The patient has been notified of the results by letter per SA requirements. Additional no tification policies are in place for contacting patient with suspicious or incomplete findings. Quality ID #[id number]: The [employer] recommends an annual screening mammogram for women aged 40 years or over. This facility utilizes a reminder system to ensure that all patients receive reminder letters, and/or direct phone calls for appointments. This includes reminders for routine scr eening mammograms, diagnostic mammograms, or other Breast Imaging Interventions when appropriate. Th is patient will be placed in the appropriate reminder system. The [employer] (ACR) has developed recommendations for screening MRI of the breast s in certain patient populations, to be used in conjunction with mammography. Breast MRI surveillanc e may be appropriate for women with more than 20% lifetime risk of developing breast cancer as deter mined by genetic testing, significant family history of the disease, or history of mantle radiation f or Hodgkins Disease. ACR Practice Guidelines 2008. DBT Technology DBT is a type of tomographic mammography. With conventional mammography, overlapping breast tissue ma y make lesions difficult to detect, even with good compression. DBT uses an x-ray tube that rotates a round the breast, taking images at different angles. These images are then combined to create thin sl ices of the breast that the radiologist can view as a 3D reconstruction. The 3DSoC unit can perform full-field digital mammograms (2D imaging); or DBT (3D imaging); or both, in a combination mode that quickly performs both the mammogram and the tomosynthesis scan while the breast is still compressed. PQRS 6045F: Fluoroscopic imaging is not utilized for breast tomosynthesis. TECHNICAL DOCUMENTATION: FINDING NUMBER: (1) ASSESSMENT: (1) JOB ID: [id number] [employer]- All Rights Reserved Reading location - IP/workstation name: [email or web address]
== END ==
LOC: WI 09:51
PROVIDERS: ATTEND Family Medicine
DX: Z12.31 Encounter for screening mammogram for malignant neoplasm of breast (principal)
CPT/HCPCS: 77063; 77067

== ENCOUNTER → 2018-08-20 | Outpatient (CLI) | payer MEDICARE ==
--- NOTE | 2018-08-20 12:41 | WOMENS IMAGING REPORT ---
EXAM DESCRIPTION: BILAT SCREENING MAMMO W/CAD COMPLETED DATE/TIME: 08/20/2018 11:34 am REASON FOR STUDY: Z12.31 ENCOUNTER FOR SCREENING MAMMOGRAM FOR MALIGNANT NEOPLASM OF BREAST Z12.31 ENCNTR SCREEN MAMMOGRAM FOR MALIGNANT NEOPLASM OF OLAMIDE COMPARISON: [id number] TECHNIQUE: Standard craniocaudal and mediolateral oblique views of each breast recorded using digita l acquisition. LIMITATIONS: None. FINDINGS: Findings present which are benign by mammographic criteria. No suspicious masses, calcifi cations or architectural distortion. Pertinent benign findings: Stable calcifications. Read with the assistance of CAD. .[facility] - R2 Cenova Version 1.3 .[facility] Imaging - R2 Cenova Version 2.1 .[facility] Imaging - R2 Cenova Version 2.4 .[facility] - R2 Cenova Version 2.4 .[facility] - R2 Manager Aviation Version 9.2 Benign mammographic findings may include one or more of the following: Smooth masses, popcorn/rim/co arse calcifications, asymmetries, post-procedure changes, and lesions with long-standing stability. IMPRESSION: BENIGN MAMMOGRAPHIC FINDINGS. BIRADS 2 BREAST DENSITY: b. There are scattered areas of fibroglandular density. BIRAD: 2 BENIGN FINDING(S) RECOMMENDATION: ROUTINE SCREENING COMMENT: The patient has been notified of the results by letter per MQSA requirements. Additional no tification policies are in place for contacting patient with suspicious or incomplete findings. Quality ID #[id number]: The [employer] recommends an annual screening mammogram for women aged 40 years or over. This facility utilizes a reminder system to ensure that all patients receive reminder letters, and/or direct phone calls for appointments. This includes reminders for routine scr eening mammograms, diagnostic mammograms, or other Breast Imaging Interventions when appropriate. Th is patient will be placed in the appropriate reminder system. The [employer] (ACR) has developed recommendations for screening MRI of the breast s in certain patient populations, to be used in conjunction with mammography. Breast MRI surveillanc e may be appropriate for women with more than 20% lifetime risk of developing breast cancer as deter mined by genetic testing, significant family history of the disease, or history of mantle radiation f or Hodgkins Disease. ACR Practice Guidelines 2008. TECHNICAL DOCUMENTATION: FINDING NUMBER: (1) ASSESSMENT: (1) JOB ID: [id number] [employer]- All Rights Reserved Reading location - IP/workstation name: [email or web address]
== END ==
LOC: WI 11:14
PROVIDERS: ATTEND Family Medicine
DX: Z12.31 Encounter for screening mammogram for malignant neoplasm of breast (principal)
CPT/HCPCS: 77067

== ENCOUNTER → 2019-08-24 | Outpatient (CLI) | payer MEDICARE ==
--- NOTE | 2019-08-24 10:50 | WOMENS IMAGING REPORT ---
EXAM DESCRIPTION: 3D SCREENING MAMMO BILAT COMPLETED DATE/TIME: 08/24/2019 9:47 am REASON FOR STUDY: Z12.31 SCREENING MAMMO Z12.31 ENCNTR SCREEN MAMMOGRAM FOR MALIGNANT NEOPLASM OF B RE COMPARISON: 2016 to 2018 EXAM PARAMETERS: Views: Standard craniocaudal and mediolateral oblique views of each breast recorded using digital acquisition and breast tomosynthesis. Read with the assistance of CAD. .[facility] - R2 Home Theatre Technician Version 9.2 LIMITATIONS: None. FINDINGS: No suspicious masses, suspicious calcifications or architectural distortion. No areas of c oncern. IMPRESSION: NEGATIVE MAMMOGRAM. BIRADS 1. BREAST DENSITY: b. There are scattered areas of fibroglandular density. BIRAD: ASSESSMENT: 1 NEGATIVE RECOMMENDATION: ROUTINE SCREENING COMMENT: The patient has been notified of the results by letter per MQSA requirements. Additional no tification policies are in place for contacting patient with suspicious or incomplete findings. Quality ID #[id number]: The [employer] recommends an annual screening mammogram for women aged 40 years or over. This facility utilizes a reminder system to ensure that all patients receive reminder letters, and/or direct phone calls for appointments. This includes reminders for routine scr eening mammograms, diagnostic mammograms, or other Breast Imaging Interventions when appropriate. Th is patient will be placed in the appropriate reminder system. TECHNICAL DOCUMENTATION: FINDING NUMBER: (1) ASSESSMENT: (1) JOB ID: [id number] 2010 [employer]- All Rights Reserved Reading location - IP/workstation name: [email or web address]
== END ==
LOC: WI 09:20
PROVIDERS: ATTEND Family Medicine
DX: Z12.31 Encounter for screening mammogram for malignant neoplasm of breast (principal)
CPT/HCPCS: 77063; 77067

== ENCOUNTER 2020-05-29 14:11 | Emergency (ER) | payer MEDICARE ==
--- NOTE | 2020-05-29 14:51 | ER Document Report ---
ED Medical Screen (RME) - General Chief Complaint: Shortness Of Breath Stated Complaint: FATIAGE/SHORTNESS OF BREATH/COUGH/LOSS OF APPETITE Time Seen by Provider: 05/29/20 14:46 Primary Care Provider: THO MOJICA MD [Primary Care Provider] - Follow up as needed Mode of Arrival: Medic Information source: Patient Notes: 79-year-old female presented to ED for complaint of leg pain shortness of breath weakness no appetite. She did come by EMS and they did a Covid which was positive. She states she was seen in the hospital in April for a UTI which turned out to be E. coli. She does have body aches she does not smoke drink or use any illicit drugs. She does live by herself. I have greeted and performed a rapid initial assessment of this patient. A comprehensive ED assessment and evaluation of the patient, analysis of test results and completion of medical decision making process will be conducted by an additional ED providers. TRAVEL OUTSIDE OF THE [place] IN LAST 30 DAYS: No - Related Data Allergies/Adverse Reactions: Penicillins Allergy (Verified 11/11/16 07:50) Past Medical History - Past Medical History Cardiac Medical History: Reports: Hx Hypertension Endocrine Medical History: Reports: Hx Hypothyroidism Renal/ Medical History: Denies: Hx Peritoneal Dialysis GI Medical History: Reports: Hx Gastroesophageal Reflux Disease Psychiatric Medical History: Reports: Hx Depression Past Surgical History: Reports: Hx Cholecystectomy, Other - Breast surgery for a benign cyst Physical Exam - Vital signs Vitals: Temp Pulse Resp BP Pulse Ox 97.5 F 78 20 126/65 H 96 05/29/20 14:17 05/29/20 14:17 05/29/20 14:17 05/29/20 14:17 05/29/20 14:17 Course - Vital Signs Vital signs: Temp Pulse Resp BP Pulse Ox 97.5 F 78 20 126/65 H 96 05/29/20 14:17 05/29/20 14:17 05/29/20 14:17 05/29/20 14:17 05/29/20 14:17 Doctor's Discharge - Discharge Referrals: THO MOJICA MD [Primary Care Provider] - Follow up as needed
[2020-05-29 15:13] LABS: ABSOLUTE LYMPHOCYTES (AUTO) 1.4 10^3/uL (0.5-4.7); ABSOLUTE MONOCYTES (AUTO) 0.5 10^3/uL (0.1-1.4); ABSOLUTE NEUT (AUTO) 4.6 10^3/uL (1.7-8.2); BASOPHILS % (AUTO) 0.4 % (0-2); EOSINOPHILS % (AUTO) 0.3 % (0-6); HEMATOCRIT 40.5 % (36.0-47.0); HEMOGLOBIN 13.5 g/dL (12.0-15.5); LYMPHOCYTES % (AUTO) 21.2 % (13-45); MEAN CORPUSCULAR HEMOGLOBIN 30.4 pg (27.0-33.4); MEAN CORPUSCULAR HGB CONC 33.4 g/dL (32.0-36.0); MEAN CORPUSCULAR VOLUME 91 fl (80-97); MONOCYTES % (AUTO) 8.3 % (3-13); PLATELET COUNT 239 10^3/uL (150-450); RED BLOOD COUNT 4.45 10^6/uL (3.72-5.28); RED CELL DISTRIBUTION WIDTH 14.2 % (11.5-14.0); SEGMENTED NEUTROPHILS % (AUTO) 69.8 % (42-78); TOTAL CELLS COUNTED % (AUTO) 100 %; WHITE BLOOD COUNT 6.6 10^3/uL (4.0-10.5)
[2020-05-29 15:32] LABS: ALBUMIN 3.4 g/dL (3.5-5.0); ALKALINE PHOSPHATASE 68 U/L (38-126); ANION GAP 10 (5-19); ASPARTATE AMINO TRANSFERASE 179 U/L (14-36); BILIRUBIN,DIRECT 0.2 mg/dL (0.0-0.4); BILIRUBIN,TOTAL 0.4 mg/dL (0.2-1.3); BLOOD UREA NITROGEN 22 mg/dL (7-20); CALCIUM 8.6 mg/dL (8.4-10.2); CARBON DIOXIDE 22 mmol/L (22-30); CHLORIDE 107 mmol/L (98-107); GLUCOSE 127 mg/dL (75-110); POTASSIUM 3.6 mmol/L (3.6-5.0)
--- NOTE | 2020-05-29 15:57 | RADIOLOGY REPORT (SQ) ---
EXAM DESCRIPTION: CHEST SINGLE VIEW IMAGES COMPLETED DATE/TIME: 05/29/2020 2:35 pm REASON FOR STUDY: Covid positive shortness of breath weakness COMPARISON: 08/23/2016 EXAM PARAMETERS: NUMBER OF VIEWS: One view. TECHNIQUE: Single frontal radiographic view of the chest acquired. RADIATION DOSE: NA LIMITATIONS: None. FINDINGS: LUNGS AND PLEURA: Lungs are hyperinflated. No opacities, masses or pneumothorax. No pleur al effusion. MEDIASTINUM AND HILAR STRUCTURES: No masses. Contour normal. HEART AND VASCULAR STRUCTURES: Heart normal in size. Normal vasculature. BONES: No acute findings. HARDWARE: None in the chest. OTHER: No other significant finding. IMPRESSION: No acute cardiopulmonary disease. Hyperinflated lungs which can be seen with obstructiv e lung disease. TECHNICAL DOCUMENTATION: JOB ID: [id number] 2010 [employer]- All Rights Reserved Reading location - IP/workstation name: [email or web address]
[2020-05-29 17:59] VITALS: BP 110/71
[2020-05-29 19:03] LABS: A TYPE INFLUENZA AG NEGATIVE (NEGATIVE); B INFLUENZA AG NEGATIVE (NEGATIVE)
[2020-05-29] MEDS ORDERED: ONDANSETRON 4 MG TAB.RAPDIS PO ONE (19:52)
== END 2020-05-29 20:05 | disposition left against medical advice (07) ==
LOC: ER 14:11
DX: U07.1 COVID-19 (principal); M79.606 Pain in leg, unspecified; I10 Essential (primary) hypertension; Z88.0 Allergy status to penicillin; Z53.20 Procedure and treatment not carried out because of patient's decision for unspecified reasons
CPT/HCPCS: 99281; 36415; 87070; 87880; 85025; 80053; 87804; 71045; A9270; S0119